=== PATIENT | male | born 1940 | race Caucasian/White ===

== ENCOUNTER 2023-12-11 03:08 | Inpatient (IN) | payer OTHER, SELFPAY ==
[2023-12-10 22:09] VITALS: BP 142/68
[2023-12-10 22:33] VITALS: BP 147/52
[2023-12-10 22:34] VITALS: BMI 27.7
[2023-12-10] MEDS: TYLENOL 650 MG PO (22:40)
[2023-12-10 22:46] VITALS: BP 157/68
[2023-12-10 22:59] LABS: % Basophils 0.2 % (0-2); % Eosinophils 0.1 % (0-6); % Immature Granulocytes 0.6 % (0-0.5); % Lymphocytes 4.5 % (20.5-51.1); % Monocytes 10.1 % (1.7-9.3); % Neutrophils 84.5 % (42.2-75.2); Absolute Immature Granulocytes 0.1 10^3/uL (0-0.05); Absolute Lymphocytes 0.6 10^3/uL (1.2-3.4); Absolute Monocytes 1.4 10^3/uL (0.1-0.6); Absolute Neutrophils 11.8 10^3/uL (1.4-6.5); Hematocrit 33.1 % (39.0-52.0); Hemoglobin 11.8 g/dL (13.0-18.0); Mean Corp Hgb Conc. 35.6 g/dL (33.0-37.0); Mean Corpuscular Hgb 33.2 pg (27.0-31.0); Mean Corpuscular Volume 93.2 fL (80.0-94.0); Mean Platelet Volume 9.1 fL (7.4-10.4); Nucleated Red Blood Cells % 0 % (-); Platelet Count 139 10^3/uL (130-400); Red Blood Cell Count 3.55 10^6/uL (4.70-6.10); Red Cell Dist. Width 12.9 % (11.5-14.5); White Blood Cell Count 13.9 10^3/uL (4.8-10.8)
[2023-12-10 23:00] VITALS: BP 141/62
[2023-12-10 23:07] LABS: Lactic Acid 1.1 mmol/L (0.7-2.0)
[2023-12-10 23:08] LABS: ALT (SGPT) 17 U/L (0-50); AST (SGOT) 22 U/L (17-59); Albumin 3.8 g/dl (3.5-5.0); Alkaline Phosphatase 70 U/L (38-126); Blood Urea Nitrogen 20 mg/dl (9-20); Calcium 8.9 mg/dl (8.4-10.2); Carbon Dioxide 20 mmol/L (22-30); Chloride 101 mmol/L (98-107); Estimated Creatinine Clearance 85 ml/min; Glucose 126 mg/dl (70-99); Potassium 3.9 mmol/L (3.5-5.1); Sodium 130 mmol/L (135-145); Total Bilirubin 1.1 mg/dl (0.2-1.3); Total Protein 6.1 g/dl (6.3-8.2); eGFR > 60.00
[2023-12-11] VITALS (12 sets, daily range): BP systolic 117–149; BP diastolic 55–101; PULSE 88; O2SAT 96; BMI 26.8
[2023-12-11 00:43] LABS: Urine Albumin 2+ (Neg - Trace); Urine Bilirubin Negative (Negative); Urine Character Slightly Cloudy (Clear); Urine Color Yellow; Urine Glucose Negative (Negative); Urine Ketone Negative (Negative); Urine Leukocyte 2+ (Negative); Urine Nitrite Negative (Negative); Urine Occult Blood Trace (Negative); Urine Specific Gravity 1.015 (<1.030); Urine Urobilinogen Negative (Neg - 1+)
--- NOTE | 2023-12-11 00:52 | ED.GENMED ---
History of Present Illness
General
Chief Complaint: Weakness
Source: patient
Time Seen by Provider: 12/11/23 00:19
History of Present Illness
History of Present Illness:
83-year-old male with past medical history of CAD, hypertension, hyperlipidemia, diabetes, UTI with previous urosepsis bacteremia presenting to the emergency department for evaluation with EMS for increased weakness and general lethargy over the
last 12 hours with reporting he started to feel unwell earlier in the day and then patient went into the bathroom and was unable to get him up off the toilet. Patient and are both unaware that patient had any fevers at home as
patient was to be febrile here upon arrival. reports patient was otherwise in his usual state of health. No known sick contacts, recent travel or recent antibiotics. Patient denies any recent URI-like illnesses. states patient has a
history of UTI bacteremia/sepsis and was admitted to this facility in March 2023 for this.
Past History
Past History
ED Past Medical History: CAD, HTN, Hypercholesterolemia, NIDDM (Diet controlled), Other (diverticulosis, PNA, Renal calculus, UTI, Right ankle fracture, ) and Other (kidney stone)
ED Past Surgical History: Cardiac (Stent), Tonsilectomy and Other (Deviated septum)
Social History
Tobacco: Non-smoker
Alcohol: None
Drug: None
Personal:
Living: with family
Employment: Employed
Family History
Family History: Hypertension
Review of Systems
Review of Systems
All Other Systems: ROS reviewed and negative except as documented in HPI and ROS
Phy Exam
Physical Exam
Physical Exam:
GENERAL: Sleepy but arousable, in no apparent distress
Head: Normocephalic atraumatic
EYE: conjunctiva clear
NECK: Supple, no significant adenopathy.
ENT: o/p clr, mmm.
CARDIAC: Regular rate and rhythm, harsh holosystolic murmur right second intercostal space
LUNGS: Clear breath sounds bilaterally, no acute respiratory distress, no wheezes/rales/rhonchi
Abdomen: Soft, nontender, nondistended
NEUROLOGICAL: Alert and oriented
SKIN: Warm and dry, skin intact.
MUSCULOSKELETAL: Trace nonpitting edema bilateral ankles
PSYCH: Normal and appropriate interaction.
Scores
Heart Failure Risk
Heart Failure Risk Score: Not Applicable
Heart Score for Chest Pain Patients
STEMI patient?: Not applicable
Withdrawal Assessment of Alcohol
Withdrawal Assessment Completed?: Not applicable
Course
Orders/Labs/Results
Orders:
Orders
12/10/23 22:37
Acetaminophen [Tylenol] 650 mg .ROUTE .STK-MED ONE
12/10/23 22:39
Acetaminophen [Tylenol] 650 mg PO NOW STA
12/10/23 22:48
Complete Blood Count/With Diff Urgent
Comprehensive Metabolic Panel Urgent
Lactate Level [Lactic Acid] Urgent
12/11/23 00:16
Urinalysis Reflex To Culture Urgent
Date Specimen was Collected: 12/11/23
Time Specimen was Collected: 00:15
Urine Microscopic Reflex Cult Urgent
Urine Culture Urgent
MIKKI Source: U
Specimen Description:
Date Specimen was Collected: 12/11/23
Time Specimen was Collected: 00:15
12/11/23 00:34
0.9% Sodium Chloride 1000 ml [Nss] 1,000 ml IV BOLUS
CR Chest - 2 Views Urgent
Comment:
Reason For Exam: fever
12/11/23 01:33
Cefepime HCl [Maxipime] 2,000 mg IV NOW STA
12/11/23 03:00
Flush (0.9% Sodium Chloride) [Flush (Nss)] See Dose Instructions IV PER PROTOCOL
12/11/23 04:45
Lactic Acid Q4H
Comment: CANCEL 2nd LACTIC ACID IF 1st LACTIC ACID IS LESS THAN 2
Abnormal Lab Results
12/10/23 12/11/23
22:48 00:16
WBC 13.9 H 10^3/uL
(4.8-10.8)
RBC 3.55 L 10^6/uL
(4.70-6.10)
Hgb 11.8 L g/dL
(13.0-18.0)
Hct 33.1 L %
(39.0-52.0)
MCH 33.2 H pg
(27.0-31.0)
Abs Immat Gran (auto) 0.1 H 10^3/uL
(0-0.05)
Absolute Neuts (auto) 11.8 H 10^3/uL
(1.4-6.5)
Absolute Lymphs (auto) 0.6 L 10^3/uL
(1.2-3.4)
Absolute Monos (auto) 1.4 H 10^3/uL
(0.1-0.6)
Immature Gran % 0.6 H %
(0-0.5)
Neutrophils % 84.5 H %
(42.2-75.2)
Lymphocytes % 4.5 L %
(20.5-51.1)
Monocytes % 10.1 H %
(1.7-9.3)
Sodium 130 L mmol/L
(135-145)
Carbon Dioxide 20 L mmol/L
(22-30)
Glucose 126 H mg/dl
(70-99)
Total Protein 6.1 L g/dl
(6.3-8.2)
Ur Occult Blood Reflex Trace A
(Negative)
Leukocyte Esterase Rfl 2+ A
(Negative)
Urine WBC (Reflex) >100 A /HPF
(0-5)
Urine Bacteria (Reflex) Many A
(Negative)
Urine Albumin (Reflex) 2+ A
(Neg - Trace)
12/10/23 22:48
12/10/23 22:48
Vital Signs
Initial and Last Documented VS:
Initial Vital Signs
Temp Pulse Resp BP Pulse Ox
99.9 F 91 18 142/68 96
12/10/23 22:09 12/10/23 22:09 12/10/23 22:09 12/10/23 22:09 12/10/23 22:09
Last Documented Vital Signs
Temp Pulse Resp BP Pulse Ox
100.3 F 76 20 133/64 96
12/10/23 23:49 12/11/23 02:00 12/11/23 02:00 12/11/23 01:16 12/11/23 02:00
MDM/Problems Addressed
Differential Diagnosis Includes:
COVID/other viral syndrome, UTI, pneumonia, bacteremia
MDM/Problems Addressed:
83-year-old male presenting to the emergency department for evaluation of generalized weakness that started about 12 hours ago. Patient found to have low-grade fever in the emergency department and treated with 650 mg Tylenol p.o. Labs including
lactic acid were ordered, urine and chest x-ray ordered. Patient currently hemodynamically stable. Given history and current presentation I do anticipate patient will need admission. Reassessment following workup
*Pulse Oximetry
Patient hypoxic: no
*Furniture Sales Associate Interpretation
Rate: normal
Rhythm: sinus
*Critical Care Note
Total Time (30-74mins, 75-104mins- exclusive of procedures): Not Applicable
Data Reviewed
Review of Other/Old Records Reveals: Labs and Records
Source: patient, records and spouse
Patient Management
Discussion with other providers: Hospitalist
Escalation/DeEscalation of care consider admission/obs:
Patient's urine with greater than 100 WBCs. Leukocytosis of 13,000. Lactic acid 1.1. Given age combined with generalized weakness and inability to ambulate as well as history of bacteremia and urosepsis will admit for IV antibiotics. Previous
culture report noted to be pansensitive. E. coli. IV Maxipime ordered. Hospitalist team was notified and accepts for continued evaluation and treatment.
ED Attending Note
-
Portions of this chart may have been created with voice recognition software.� Occasional wrong word or��sound alike� substitutions may have occurred due to the inherent limitations of voice recognition software.
Discharge Plan
Departure
Patient Disposition: Admit
Date of Disposition: 12/11/23
Time of Disposition: 01:36
Presentation/result/management discussed w/ accepting MD/DO: Hospitalist
Discharge Problem:
Acute UTI, Generalized weakness
Prescriptions:
No Action
nitroglycerin 0.4 MG tablet, sublingual
0.4 mg sublingual [id number] PRN (Reason: as needed)
Patient Comments:
pt states he has never used
multivitamin with folic acid [Tab-A-Tamara] 1 TABLET tablet
1 tab PO DAILY Qty: 0
atorvastatin 80 MG tablet
80 mg PO QPM
Flaxseed Oil 1,400 MG
1,400 mg PO BID
metoprolol succinate 50 MG tablet extended release 24 hr
50 mg PO DAILY
Metamucil Fiber Singles 1 PACKET powder in packet
1 packet PO QPM
lisinopril 20 MG tablet
40 mg PO DAILY
aspirin 81 MG tablet,delayed release (DR/EC)
81 mg PO BID
donepezil 5 MG tablet
5 mg PO HS
icosapent ethyl 1 GM capsule
2 gm PO BID
Cholecalciferol (Vitamin D3) [Vitamin D3] 50 MCG Capsule
50 mcg PO BID
methenamine hippurate 1 gram Tablet
1 g PO BID
sertraline 50 mg Tablet
50 mg PO DAILY
Myrbetriq 50 mg Tablet Extended Release 24 Hr
50 mg PO DAILY
cefazolin 10 gram Recon Soln
2 g IV Q8H Qty: 24 0RF
Referrals:
Jessenia Lo CRNP [Family Provider] -
Interventions
Interventions:
*Risk Screen - Suicide Last Done: 12/10/23 22:09
*General Assessment Last Done: 12/10/23 22:09
*Neglect/Abuse Screening Last Done: 12/10/23 22:09
*ED COVID-19 Vaccine History Last Done: 12/10/23 22:35
ED- Cardiac Assessment Last Done: 12/10/23 22:34
ED- Neurological Assessment Last Done: 12/10/23 22:34
ED- Pulmonary Assessment Last Done: 12/10/23 22:34
Discharge Date and Time
Print Language: MONTSERRATIAN
[2023-12-11] MEDS: NSS 1000 IV ×3 (01:20→20:57)
[2023-12-11 01:30] LABS: Urine Amorphous Seen; Urine Squamous Cell >30 /LPF (Few); Urine White Cell >100 /HPF (0-5)
[2023-12-11 01:31] LABS: Urine Bacteria Many (Negative); Urine Mucus Moderate
[2023-12-11] MEDS: MAXIPIME 2000 MG IV (02:06)
--- NOTE | 2023-12-11 02:48 | HPS.HSE ---
Family Physician
-
Family Physician: Jessenia Lo
Chief Complaint
-
weakness and AMS
History of Present Illness
83M HX Dementia, frequent UTI pw lethargy and weakness
Fever 101.3 at ER.
POS UA for URTI S 29M
Medical History
Past Medical History
Past Medical History: Reports Other
Additional Past Medical History:
ASCVD
Hypertension
Senile Dementia
BPH with LUTS
Frequent UTIs
Past Surgical History: Reports Other
Additional Past Surgical History:
TURP
PTCA with Stent
Carpal Tunnel Release
Social History
Tobacco: Non-smoker
Alcohol: None
Family History
Family History: Not pertinent
Allergies / Home Medications
Allergies reflects when Allergies were last updated in [facility].
Home Medications with original date entered in [facility]
Allergy/Medication List:
Allergies
Allergy/AdvReac Type Severity Reaction Status Date / Time
No Known Allergies Allergy Verified 03/11/23 21:08
Home Medications
multivitamin with folic acid 400 mcg tablet (Tab-A-Tamara) 1 tab PO DAILY Supplement ##0 12/14/11
nitroglycerin 0.4 mg sublingual tablet 0.4 mg sublingual [id number] PRN as needed 12/14/11
Flaxseed Oil 1,400 mg PO BID Supplement 02/08/14
atorvastatin 80 mg tablet 80 mg PO QPM High cholesterol 02/08/14
lisinopril 20 mg tablet 40 mg PO DAILY Blood pressure 12/24/18
metoprolol succinate 50 mg tablet,extended release 24 hr 50 mg PO DAILY Blood pressure 12/24/18
psyllium husk (aspartame) 3.4 gram oral powder packet (Metamucil Fiber Singles) 1 packet PO QPM Gastrointestinal issue 12/24/18
aspirin 81 mg tablet,delayed release 81 mg PO BID Blood clot prevention/tx 05/12/20
Cholecalciferol (Vitamin D3) [Vitamin D3] 50 mcg PO BID Supplement 08/21/21
donepezil 5 mg tablet 5 mg PO HS Alzheimers 08/21/21
icosapent ethyl 1 gram capsule 2 gm PO BID Supplement 08/21/21
methenamine hippurate 1 gram tablet 1 g PO BID 03/12/23
mirabegron 50 mg tablet,extended release 24 hr (Myrbetriq) 50 mg PO DAILY 03/12/23
sertraline 50 mg tablet 50 mg PO DAILY 03/12/23
Review of Systems
-
History Source: Patient
A 12 point ROS was completed and negative except as noted: Yes
Constitutional: Denies Fever or Chills
EENT: Denies Sore Throat
Respiratory: Denies Cough or Trouble Breathing
Cardiac: Denies Chest Pain or Palpitations
Abdomen/GI: Denies Abdominal Pain, Nausea, Vomiting or Diarrhea
: Reports Frequency and Urgency; Denies Dysuria, Flank Pain or Incontinence
Musculoskeletal: Denies Joint Pain or Edema
Neurological: Denies Dizzy or Headache
Psych: Denies Depression or Anxiety
Physical Exam
Vital Signs
Vital Signs
Temp Pulse Resp BP Pulse Ox
100.3 F 76 20 133/64 96
12/10/23 23:49 12/11/23 02:00 12/11/23 02:00 12/11/23 01:16 12/11/23 02:00
Physical Exam
General: Other (82y M in no acute distress.)
HEENT: Moist mucous membranes and PERRLA
Respiratory: Clear; No Wheezes, Rales or Rhonchi
Cardiac: S1/S2 and Regular Rhythm; No Murmur
GI: Soft, Non Tender, Non Distended and Normal Bowel Sounds
Genito-urinary: No costovertebral tender
Musculoskeletal: No Clubbing, No Cyanosis and No Edema
Neuro: Awake, Alert and Nonfocal/grossly intact
Psych: No Anxious or Depressed
Laboratory Results
-
12/10/23 22:48
12/10/23 22:48
Laboratory Results
Lactic Acid Cancelled 12/11/23 00:45
Total Bilirubin 1.1 mg/dl (0.2-1.3) 12/10/23 22:48
AST 22 U/L (17-59) 12/10/23 22:48
ALT 17 U/L (0-50) 12/10/23 22:48
Alkaline Phosphatase 70 U/L (38-126) 12/10/23 22:48
Data Reviewed
-
Lab Data: Labs Reviewed by me
Old Records: Reviewed
Impression/Plan
-
Reviewed VS: T max 101.3
Data
WCC 13.9
Hgb 11.8
Na 130
nl Cr
POS UA for UTI
CXR pending final report
Last hospitalist admission: 03/13/23 - 03/20/23
DISCHARGE DIAGNOSES:
1. Methicillin-sensitive Staph aureus bacteremia.
2. Escherichia coli urinary tract infection complicated with self- limited episode of hematuria.
3. COVID-19 positive.
ASSESSMENT & PLAN
Pending Rx reconciliation
Sepsis due to UTI
UTI
HX Recurrent UTIs
BPH
- UA consistent with possible infection.
- IV CFTX pending UCx
- IVF
- Hold Hiprex while on CFTX
Resolving lethargic TME with weakness due to UTI
Senile Dementia
- Treat UTI and observe MS
- Continue Aricept, sertraline, etc.
- PT / OT
CAD PTCA with Stent
- Stable. No current chest pain, etc.
- Continue current CV med regimen.
Benign Hypertension
- Stable.
- Continue current BP Meds
DVT Prophylaxis: SQ Heparin
Code: Full
IP TLM
[2023-12-11 06:36] LABS: Hematocrit 35.9 % (39.0-52.0); Hemoglobin 12.5 g/dL (13.0-18.0); Mean Corp Hgb Conc. 34.8 g/dL (33.0-37.0); Mean Corpuscular Hgb 33.7 pg (27.0-31.0); Mean Corpuscular Volume 96.8 fL (80.0-94.0); Mean Platelet Volume 9.3 fL (7.4-10.4); Platelet Count 131 10^3/uL (130-400); Red Blood Cell Count 3.71 10^6/uL (4.70-6.10); White Blood Cell Count 15.3 10^3/uL (4.8-10.8)
[2023-12-11] MEDS: HEPARIN 5000 UNITS SC ×2 (09:42→20:58)
[2023-12-11] MEDS: ROCEPHIN 1000 MG IV (09:43)
[2023-12-11] MEDS: STERILE WATER FOR INJECTION 10 ML IV (09:43)
--- NOTE | 2023-12-11 10:02 | W.PN.HOSP.TC ---
Addendum entered and electronically signed by Margarito Salgado DO 12/11/23 13:18:
Updated daughter Verito over the phone. All questions answered.
Original Note:
Today's Communication/Plan
-
Continue antibiotics
Recheck labs
PT/OT
Assessment / Plan
Assessment / Plan
Gen-awake, alert, NAD
HEENT-NC, AT, anicteric, clear oral mm
Neck-supple
CV-reg, no M, +S1/S2
Lungs-clear B/L
Abd-soft, NT, ND
Ext-no edema
Musculoskeletal-no cyanosis, clubbing
Skin-warm and dry
Neuro-grossly non-focal
Psych-calm, cooperative
Sepsis -due to UTI. Hemodynamically stable. Continue antibiotics. Await cultures.
Acute TME -due to sepsis. Unclear baseline but suspect his mental status has improved.
Hyponatremia -present on admission. Recheck labs.
Alzheimer's dementia
Hyperlipidemia
essential hypertension
CAD
BPH
Full code
Anticipated Discharge: 24 - 48 hours
Subjective/Interval History
-
Date of Service: December 11, 2023
Patient seen and examined. No complaints.
Objective Data
-
Labs:
Laboratory Results
12/10/23 12/11/23
22:48 06:10
WBC 13.9 H 15.3 H
Hgb 11.8 L 12.5 L
Hct 33.1 L 35.9 L
Plt Count 139 131
Sodium 130 L
Potassium 3.9
Chloride 101
Carbon Dioxide 20 L
BUN 20
Creatinine 0.7
Glucose 126 H
Calcium 8.9
Total Bilirubin 1.1
AST 22
ALT 17
Alkaline Phosphatase 70
Vital Signs:
Vital Signs
Temp Pulse Resp BP Pulse Ox
97 F 81 28 149/68 97
12/11/23 07:25 12/11/23 07:25 12/11/23 07:25 12/11/23 07:25 12/11/23 07:25
I&O
12/10/23 12/11/23 12/12/23
06:59 06:59 06:59
Output Total 1200 / 1200
Balance -1200 / -1200
Review of Systems
-
Unable to obtain full review of systems at this time due to: Dementia
History Source: Patient
All other systems: Reviewed and negative
[2023-12-11 11:08] LABS: Blood Urea Nitrogen 15 mg/dl (9-20); Calcium 8.8 mg/dl (8.4-10.2); Carbon Dioxide 24 mmol/L (22-30); Chloride 106 mmol/L (98-107); Estimated Creatinine Clearance 99 ml/min; Glucose 112 mg/dl (70-99); Sodium 136 mmol/L (135-145); eGFR > 60.00
[2023-12-11] MEDS: TYLENOL 650 MG PO (14:35)
--- NOTE | 2023-12-11 15:20 | CM ---
Patient seen bedside with , Verito initial assessment completed. Patient resides with at [facility] in a single story home, patient uses a cane for ambulation. PT recommending VN and / care, discussed with , agreeable to
referral to [facility]. reports patient is never left alone, if she goes out, she will bring patient with her. Patient PCP EXCELLENCE COACH Jessenia Lo, pharmacy [facility] in [facility]. Patient confirms prescription coverage, denies food, housing/utility, and
transportation insecurities. CM will send referral to [facility] in [facility], will continue to follow for all discharge planning needs.
Plan; home with [facility] pending acceptance.
[2023-12-11] MEDS: LIPITOR 80 MG PO (17:01)
[2023-12-11] MEDS: ARICEPT 5 MG PO (21:05)
[2023-12-12 03:22] VITALS: BP 140/74
[2023-12-12] MEDS: TYLENOL 650 MG PO (03:42)
[2023-12-12 07:30] VITALS: BP 134/73
[2023-12-12] MEDS: HEPARIN 5000 UNITS SC (09:09)
[2023-12-12] MEDS: ZOLOFT 50 MG PO (09:15)
[2023-12-12] MEDS: NORVASC 5 MG PO (09:16)
[2023-12-12] MEDS: ZESTRIL 40 MG PO (09:16)
[2023-12-12] MEDS: ROCEPHIN 1000 MG IV (09:16)
[2023-12-12] MEDS: STERILE WATER FOR INJECTION 10 ML IV (09:16)
--- NOTE | 2023-12-12 10:03 | W.PN.HOSP.TC ---
Addendum entered and electronically signed by Margarito Salgado DO 12/12/23 12:41:
Blood cultures negative. Urine culture shows contamination.
Can discharge on empiric oral antibiotics. Will pick Bactrim double strength.
Updated on the phone. Explained discharge instructions. Okay to discharge home today. Outpatient follow-up with PCP and urology.
mentioned that he has had 5 UTIs in the past 6 years. I informed her to make sure he follows up with urology.
also mentioned that he is enrolled in a sepsis clinical trial through [facility].
Original Note:
Today's Communication/Plan
-
Await cultures
Continue antibiotics
CBC
Assessment / Plan
Assessment / Plan
Gen-awake, alert, NAD
HEENT-NC, AT, anicteric, clear oral mm
Neck-supple
CV-reg, no M, +S1/S2
Lungs-clear B/L
Abd-soft, NT, ND
Ext-no edema
Musculoskeletal-no cyanosis, clubbing
Skin-warm and dry
Neuro-grossly non-focal
Psych-calm, cooperative
Sepsis -due to UTI. Hemodynamically stable. Continue antibiotics. Await cultures. Check CBC today.
Acute TME -due to sepsis. Unclear baseline but suspect his mental status has improved.
Hyponatremia -present on admission. Sodium improved.
Alzheimer's dementia
Hyperlipidemia
Essential hypertension - stable.
CAD
BPH
Full code
Did well with PT.
Anticipated Discharge: Within 24 hours
Subjective/Interval History
-
Date of Service: December 12, 2023
Patient seen and examined. Grumpy this morning. Wants to be left alone. No complaints.
Objective Data
-
Labs:
Laboratory Results
12/12/23
09:58
WBC Pending
Hgb Pending
Hct Pending
Plt Count Pending
Vital Signs:
Vital Signs
Temp Pulse Resp BP Pulse Ox
98.3 F 85 18 134/73 95
12/12/23 07:30 12/12/23 07:30 12/12/23 07:30 12/12/23 07:30 12/12/23 07:30
I&O
12/11/23 12/12/23 12/13/23
06:59 06:59 06:59
Intake Total 720 / 720
Output Total 1200 / 1200
Balance -1200 / -1200 720 / 720
Review of Systems
-
History Source: Patient
All other systems: Reviewed and negative
[2023-12-12 10:19] LABS: % Basophils 0.2 % (0-2); % Eosinophils 0.6 % (0-6); % Immature Granulocytes 0.3 % (0-0.5); % Lymphocytes 7.7 % (20.5-51.1); % Monocytes 7.4 % (1.7-9.3); % Neutrophils 83.8 % (42.2-75.2); Absolute Eosinophils 0.1 10^3/uL (0-0.7); Absolute Lymphocytes 0.7 10^3/uL (1.2-3.4); Absolute Monocytes 0.7 10^3/uL (0.1-0.6); Absolute Neutrophils 7.9 10^3/uL (1.4-6.5); Hematocrit 31.7 % (39.0-52.0); Hemoglobin 10.8 g/dL (13.0-18.0); Mean Corp Hgb Conc. 34.1 g/dL (33.0-37.0); Mean Corpuscular Hgb 33.2 pg (27.0-31.0); Mean Corpuscular Volume 97.5 fL (80.0-94.0); Mean Platelet Volume 8.8 fL (7.4-10.4); Nucleated Red Blood Cells % 0 % (-); Platelet Count 120 10^3/uL (130-400); Red Blood Cell Count 3.25 10^6/uL (4.70-6.10); Red Cell Dist. Width 13.2 % (11.5-14.5); White Blood Cell Count 9.5 10^3/uL (4.8-10.8)
[2023-12-12 11:11] VITALS: BP 131/63
--- NOTE | 2023-12-12 12:43 | W.DS.TRANS ---
DC Summary - Fur Glosser
-
Discharge Instructions:
Discharge Diagnosis/Procedures UTI
Diet Low Fat,Low Cholesterol,2 Gram Sodium
Activity As tolerated
Driving Restrictions No driving
Bathing Restrictions None
Instructions:
Stand-Alone Forms:
Changes to Home Medications: No
Discharge Medications:
DC Medications w/original date entered in [employer]
multivitamin with folic acid 400 mcg tablet (Tab-A-Tamara) 1 tab PO DAILY Supplement ##0 12/14/11
Flaxseed Oil 1,400 mg PO BID Supplement 02/08/14
atorvastatin 80 mg tablet 80 mg PO QPM High cholesterol 02/08/14
lisinopril 20 mg tablet 40 mg PO DAILY Blood pressure 12/24/18
metoprolol succinate 50 mg tablet,extended release 24 hr 25 mg PO DAILY Blood pressure 12/24/18
Cholecalciferol (Vitamin D3) [Vitamin D3] 50 mcg PO BID Supplement 08/21/21
donepezil 5 mg tablet 5 mg PO HS Alzheimers 08/21/21
icosapent ethyl 1 gram capsule 2 gm PO BID Supplement 08/21/21
methenamine hippurate 1 gram tablet 1 g PO BID Infection 03/12/23
mirabegron 50 mg tablet,extended release 24 hr (Myrbetriq) 50 mg PO DAILY Urinary Issue 03/12/23
sertraline 50 mg tablet 50 mg PO DAILY Depression 03/12/23
amlodipine 5 mg tablet 5 mg PO DAILY Blood Pressure 12/11/23
sulfamethoxazole 800 mg-trimethoprim 160 mg tablet (Bactrim DS) 1 tab PO BID #10 tabs 12/12/23
Home Medication Changes
Pending Results: No
[2023-12-12] MEDS: NSS IV (13:30)
--- NOTE | 2023-12-12 14:03 | CM ---
CM reviewed chart, patient for discharge today. Referral made to [facility]. SAMUEL will continue to follow for all discharge planning needs.
Plan; home with [facility].
--- NOTE | 2023-12-12 14:27 | PTCARENOTE ---
Rn flow seafood technology specialist- Patient cleared for discharge. Instructions reviewed with Verito over the phone.
== END 2023-12-12 14:40 | disposition home health service (06) | DRG 871 ==
LOC: 4 EAST ACU 03:08
PROVIDERS: Emergency Medicine; ADMITTING PHYSICIAN Internal Medicine; ATTENDING PHYSICIAN Hospitalist; EMERGENCY PHYSICIAN Student in an Organized Health Care Education/Training Program; FAMILY PHYSICIAN Nurse Practitioner Primary Care
DX: A41.9 Sepsis, unspecified organism (principal); G92.8 Other toxic encephalopathy; N39.0 Urinary tract infection, site not specified; E87.1 Hypo-osmolality and hyponatremia; G30.9 Alzheimer's disease, unspecified; F02.80 Dementia in other diseases classified elsewhere, unspecified severity, without behavioral disturbance, psychotic disturbance, mood disturbance, and anxiety; I10 Essential (primary) hypertension; E11.9 Type 2 diabetes mellitus without complications; N40.0 Benign prostatic hyperplasia without lower urinary tract symptoms; I25.10 Atherosclerotic heart disease of native coronary artery without angina pectoris
CPT/HCPCS: 71046; 80048; 80053; 81003; 81015; 83605; 85025; 85027; 87040; 87086; 97162; 99285

== ENCOUNTER → 2024-01-03 14:00 | Outpatient (REF) | payer OTHER, SELFPAY | LOC: PAVMRI 14:00 | PROVIDERS: ATTENDING PHYSICIAN Psychiatry & Neurology Neurology; FAMILY PHYSICIAN Nurse Practitioner Primary Care | DX: R41.89 Other symptoms and signs involving cognitive functions and awareness (principal) | CPT/HCPCS: 70553; A9575 ==

== ENCOUNTER → 2024-04-15 11:08 | Outpatient (REF) | payer OTHER, SELFPAY | LOC: HWRCS 11:08 | PROVIDERS: ATTENDING PHYSICIAN Internal Medicine Cardiovascular Disease; FAMILY PHYSICIAN Internal Medicine Geriatric Medicine | DX: Z95.5 Presence of coronary angioplasty implant and graft (principal); I35.0 Nonrheumatic aortic (valve) stenosis; I25.10 Atherosclerotic heart disease of native coronary artery without angina pectoris | CPT/HCPCS: 93306 ==

== ENCOUNTER 2024-07-10 20:29 | Emergency (ER) | payer OTHER, SELFPAY ==
[2024-07-10 20:36] VITALS: BP 140/64
[2024-07-10] MEDS: TYLENOL 650 MG PO (20:57)
[2024-07-10 20:59] LABS: % Basophils 0.3 % (0-2); % Eosinophils 0.4 % (0-6); % Immature Granulocytes 0.4 % (0-0.5); % Lymphocytes 3.8 % (20.5-51.1); % Monocytes 13.3 % (1.7-9.3); % Neutrophils 81.8 % (42.2-75.2); Absolute Lymphocytes 0.3 10^3/uL (1.2-3.4); Hematocrit 35.9 % (39.0-52.0); Hemoglobin 12.1 g/dL (13.0-18.0); Mean Corp Hgb Conc. 33.7 g/dL (33.0-37.0); Mean Corpuscular Hgb 32.7 pg (27.0-31.0); Mean Platelet Volume 9.2 fL (7.4-10.4); Nucleated Red Blood Cells % 0 % (-); Platelet Count 168 10^3/uL (130-400); Red Cell Dist. Width 13.2 % (11.5-14.5); White Blood Cell Count 7.3 10^3/uL (4.8-10.8)
[2024-07-10 21:00] VITALS: BP 141/53
[2024-07-10] MEDS: NSS 1000 IV (21:02)
--- NOTE | 2024-07-10 21:03 | ED.GENMED ---
History of Present Illness
<Chelsi Ball PA-C - Last Filed: 07/11/24 13:08>
General
Chief Complaint: Weakness
Source: patient and ambulance crew
Exam Limitations: clinical condition and dementia
Time Seen by Provider: 07/10/24 20:36
Nursing documentation reviewed up to this point in time: agreed with
History of Present Illness
History of Present Illness:
pt is a 84 y/o M
h/o alzheimers
from home
via ems for weakness, fever, cough
pt says he coughed all night
he feels genearlly weak
he has h/o urosepsis, was admitted in december for uti and fever and acute TME related to the UTI
he also was hyponatremic
pt normally can get himself around but was more weak today
family is not here
Past History
<Chelsi Ball PA-C - Last Filed: 07/11/24 13:08>
Past History
ED Past Medical History: CAD, HTN, Hypercholesterolemia, NIDDM (Diet controlled), Other (diverticulosis, PNA, Renal calculus, UTI, Right ankle fracture, ) and Other (kidney stone)
ED Past Surgical History: Cardiac (Stent), Tonsilectomy and Other (Deviated septum)
Social History
Tobacco: Non-smoker
Alcohol: None
Drug: None
Personal:
Living: with family
Employment: Employed
Family History
Family History: Hypertension
Phy Exam
<SERGEI No Last Filed: 07/11/24 13:08>
Physical Exam
Physical Exam:
GENERAL: Alert , in no apparent distress
EYE: pupils equal and reactive
NECK: Supple
ENT: o/p clr, mmm.
CARDIAC: Regular rate and rhythm .+mod systolic blowing mrumur
LUNGS: end exp wheezing occ, clears with cough; spastic sounding cough; no crackles no tachypnea
ABDOMEN: Soft, without focal tenderness, no r/g, no cvat, normal bowel sounds
NEUROLOGICAL: Alert and oriented, no focal neuro deficits
SKIN: Warm and dry, skin intact.
MUSCULOSKELETAL: No edema, well perfused. neg dipti's sign
can lift legs well
PSYCH: Normal and appropriate interaction.
Course
<Chelsi Ball PA-C - Last Filed: 07/11/24 13:08>
Orders/Labs/Results
Orders:
Orders
07/10/24 20:34
Electrocardiogram (*1) Urgent
Reason for Study: Fatigue / Weakness
07/10/24 20:35
EKG- Treatment ONCE
07/10/24 20:40
COVID-19 Antigen Urgent
Source: Nasal Swab
Complete Blood Count/With Diff Urgent
Comprehensive Metabolic Panel Urgent
Influenza A+B Rapid Molecular Urgent
MIKKI Source: Nasal Swab
Specimen Description:
07/10/24 20:49
0.9% Sodium Chloride 1000 ml [Nss] 1,000 ml IV BOLUS
Acetaminophen [Tylenol] 650 mg PO NOW STA
07/10/24 20:50
CR Chest - 2 Views Urgent
Comment:
Reason For Exam: fever, cough
07/10/24 20:59
Acetaminophen [Tylenol] 325 mg .ROUTE .STK-MED ONE
07/10/24 21:02
Lactic Acid Urgent
07/10/24 21:08
Straight cath- Treatment ONCE
07/10/24 21:34
Respiratory Syncytial Virus Urgent
MIKKI Source: Nasal Swab
Specimen Description:
Date Specimen was Collected: 07/10/24
Time Specimen was Collected: 21:34
07/10/24 22:17
Urinalysis Reflex To Culture Urgent
Date Specimen was Collected: 07/10/24
Time Specimen was Collected: 20:35
Urine Microscopic Reflex Cult Urgent
Urine Culture Urgent
MIKKI Source: U
Specimen Description:
Date Specimen was Collected: 07/10/24
Time Specimen was Collected: 20:35
07/10/24 23:59
Add On - Microbiology Urgent
Tests Added?: urine culture
Abnormal Lab Results
07/10/24 07/10/24
20:40 22:17
RBC 3.70 L 10^6/uL
(4.70-6.10)
Hgb 12.1 L g/dL
(13.0-18.0)
Hct 35.9 L %
(39.0-52.0)
MCV 97.0 H fL
(80.0-94.0)
MCH 32.7 H pg
(27.0-31.0)
Absolute Lymphs (auto) 0.3 L 10^3/uL
(1.2-3.4)
Absolute Monos (auto) 1.0 H 10^3/uL
(0.1-0.6)
Neutrophils % 81.8 H %
(42.2-75.2)
Lymphocytes % 3.8 L %
(20.5-51.1)
Monocytes % 13.3 H %
(1.7-9.3)
Sodium 134 L mmol/L
(135-145)
Glucose 110 H mg/dl
(70-99)
Total Protein 6.1 L g/dl
(6.3-8.2)
Ur Occult Blood Reflex 1+ A
(Negative)
Urine RBC 3-6 A /HPF
(0-2)
Urine Albumin (Reflex) 2+ A
(Neg - Trace)
07/10/24 20:40
07/10/24 20:40
Vital Signs
Initial and Last Documented VS:
Initial Vital Signs
Temp
37.7 C
07/10/24 20:32
Last Documented Vital Signs
Temp Pulse Resp BP Pulse Ox
37.6 C 94 19 133/61 94
07/10/24 23:46 07/10/24 22:30 07/10/24 22:30 07/10/24 22:00 07/10/24 22:30
<VANDANA Gonzalez - Last Filed: 07/11/24 00:00>
Orders/Labs/Results
Orders:
Orders
07/10/24 20:34
Electrocardiogram (*1) Urgent
Reason for Study: Fatigue / Weakness
07/10/24 20:35
EKG- Treatment ONCE
07/10/24 20:40
COVID-19 Antigen Urgent
Source: Nasal Swab
Complete Blood Count/With Diff Urgent
Comprehensive Metabolic Panel Urgent
Influenza A+B Rapid Molecular Urgent
MIKKI Source: Nasal Swab
Specimen Description:
07/10/24 20:49
0.9% Sodium Chloride 1000 ml [Nss] 1,000 ml IV BOLUS
Acetaminophen [Tylenol] 650 mg PO NOW STA
07/10/24 20:50
CR Chest - 2 Views Urgent
Comment:
Reason For Exam: fever, cough
07/10/24 20:59
Acetaminophen [Tylenol] 325 mg .ROUTE .STK-MED ONE
07/10/24 21:02
Lactic Acid Urgent
07/10/24 21:08
Straight cath- Treatment ONCE
07/10/24 21:34
Respiratory Syncytial Virus Urgent
MIKKI Source: Nasal Swab
Specimen Description:
Date Specimen was Collected: 07/10/24
Time Specimen was Collected: 21:34
07/10/24 22:17
Urinalysis Reflex To Culture Urgent
Date Specimen was Collected: 07/10/24
Time Specimen was Collected: 20:35
Urine Microscopic Reflex Cult Urgent
Urine Culture Urgent
MIKKI Source: U
Specimen Description:
Date Specimen was Collected: 07/10/24
Time Specimen was Collected: 20:35
07/10/24 23:59
Add On - Microbiology Urgent
Tests Added?: urine culture
Abnormal Lab Results
07/10/24 07/10/24
20:40 22:17
RBC 3.70 L 10^6/uL
(4.70-6.10)
Hgb 12.1 L g/dL
(13.0-18.0)
Hct 35.9 L %
(39.0-52.0)
MCV 97.0 H fL
(80.0-94.0)
MCH 32.7 H pg
(27.0-31.0)
Absolute Lymphs (auto) 0.3 L 10^3/uL
(1.2-3.4)
Absolute Monos (auto) 1.0 H 10^3/uL
(0.1-0.6)
Neutrophils % 81.8 H %
(42.2-75.2)
Lymphocytes % 3.8 L %
(20.5-51.1)
Monocytes % 13.3 H %
(1.7-9.3)
Sodium 134 L mmol/L
(135-145)
Glucose 110 H mg/dl
(70-99)
Total Protein 6.1 L g/dl
(6.3-8.2)
Ur Occult Blood Reflex 1+ A
(Negative)
Urine RBC 3-6 A /HPF
(0-2)
Urine Albumin (Reflex) 2+ A
(Neg - Trace)
07/10/24 20:40
07/10/24 20:40
Vital Signs
Initial and Last Documented VS:
Initial Vital Signs
Temp
37.7 C
07/10/24 20:32
Last Documented Vital Signs
Temp Pulse Resp BP Pulse Ox
37.6 C 94 19 133/61 94
07/10/24 23:46 07/10/24 22:30 07/10/24 22:30 07/10/24 22:00 07/10/24 22:30
<Chelsi Ball PA-C - Last Filed: 07/11/24 13:08>
MDM/Problems Addressed
Differential Diagnosis Includes:
urosepsis, URI, flu, covid, pneumonia, rsv
MDM/Problems Addressed:
84 y/o M
dementia
from home
h/o utis
weak today, uirinated x 2 on himself, not typical
can usually make it to the bathroom
he ate normally
pt c/o cough
temp normal at home, got tylenol at 6pm and then febrile here 102 rectally
coughing semi-freqnetly
no sob
no hypoxia
emanuel w/u with labs, lactic, cxr, ua
signed out to [facility]
<VANDANA Gonzalez - Last Filed: 07/11/24 00:00>
MDM/Problems Addressed
MDM/Problems Addressed:
84 y/o M
dementia
from home
h/o utis
weak today, uirinated x 2 on himself, not typical
can usually make it to the bathroom
he ate normally
pt c/o cough
temp normal at home, got tylenol at 6pm and then febrile here 102 rectally
coughing semi-freqnetly
no sob
no hypoxia
emanuel w/u with labs, lactic, cxr, ua
signed out to [facility]
2300: Received signout. Patient resting in no acute distress has no complaints at this time. Family reports patient is back to normal. Patient's urinalysis is negative for UTI (0�2 white blood cells and 3�6 RBCs ) sent for culture .his chest
x-ray is negative. His white count is normal at 7.3 he is negative for COVID flu and RSV mild cough however not hypoxic denies any shortness of breath.
Patient ambulated here with cane very steady on his feet at baseline. Repeat temp 99.6. Likely viral syndrome. Patient with no urinary incontinence here in the ER was able to urinate in urinal. No complaints of trauma back pain
Patient feels well enough to go home family comfortable with plan of care will discharge with close outpatient follow-up family doctor.
<VANDANA Gonzalez - Last Filed: 07/11/24 00:00>
*Critical Care Note
Total Time (30-74mins, 75-104mins- exclusive of procedures): Not Applicable
ED Attending Note
<Chelsi Ball PA-C - Last Filed: 07/11/24 13:08>
-
Portions of this chart may have been created with voice recognition software.� Occasional wrong word or��sound alike� substitutions may have occurred due to the inherent limitations of voice recognition software.
Discharge Plan
Departure
Patient Disposition: Home (Routine Discharge)
Date of Disposition: 07/10/24
Time of Disposition: 23:56
Patient with high blood pressure during this ER visit?: Yes
Covid-19: Not Applicable
Discharge Problem:
Fever, Weakness
Instructions: Generalized Weakness (DC), Fever, Adult ED, BLOOD PRESSURE
Prescriptions:
No Action
multivitamin with folic acid [Tab-A-Tamara] 1 TABLET tablet
1 tab PO DAILY Qty: 0
atorvastatin 80 MG tablet
80 mg PO QPM
Flaxseed Oil 1,400 MG
1,400 mg PO BID
metoprolol succinate 50 MG tablet extended release 24 hr
25 mg PO DAILY
lisinopril 20 MG tablet
40 mg PO DAILY
donepezil 5 MG tablet
5 mg PO HS
icosapent ethyl 1 GM capsule
2 gm PO BID
Cholecalciferol (Vitamin D3) [Vitamin D3] 50 MCG Capsule
50 mcg PO BID
methenamine hippurate 1 gram Tablet
1 g PO BID
sertraline 50 mg Tablet
50 mg PO DAILY
mirabegron [Myrbetriq] 50 mg Tablet Extended Release 24 Hr
50 mg PO DAILY
amlodipine 5 mg Tablet
5 mg PO DAILY
sulfamethoxazole-trimethoprim [Bactrim DS] 800-160 mg tablet
1 tab PO BID Qty: 10 0RF
Referrals:
Jessenia Lo CRNP [Family Provider] -
Activity Restrictions/Additional Instructions:
As discussed patient's urinalysis was found to be negative for infection and testing for flu and COVID and RSV were also negative.
Urine was tested and culture was sent . if there is infection found in culture you will receive a phone call. Be sure to get plenty of rest follow-up with family doctor in the next several days for reevaluation return if any worsening of symptoms.
Interventions
Interventions:
*Risk Screen - Suicide Last Done: 07/10/24 20:35
*General Assessment Last Done: 07/10/24 20:52
*Neglect/Abuse Screening Last Done: 07/10/24 20:35
*ED COVID-19 Vaccine History Last Done: 07/10/24 20:35
*Nursing Disposition Last Done: 07/11/24 00:08
ED- Cardiac Assessment Last Done: 07/10/24 20:50
ED- Neurological Assessment Last Done: 07/10/24 20:50
ED- Pulmonary Assessment Last Done: 07/10/24 20:50
Discharge Date and Time
Discharge Date/Time: 07/11/24 00:09
Print Language: CITIZEN [place]
[2024-07-10 21:04] LABS: COVID-19 Antigen Negative (Negative)
[2024-07-10 21:11] LABS: ALT (SGPT) 21 U/L (0-50); AST (SGOT) 20 U/L (17-59); Alkaline Phosphatase 89 U/L (38-126); Blood Urea Nitrogen 17 mg/dl (9-20); Calcium 9.4 mg/dl (8.4-10.2); Carbon Dioxide 22 mmol/L (22-30); Chloride 102 mmol/L (98-107); Glucose 110 mg/dl (70-99); Sodium 134 mmol/L (135-145); Total Bilirubin 0.8 mg/dl (0.2-1.3); Total Protein 6.1 g/dl (6.3-8.2); eGFR > 60.00
[2024-07-10 22:00] VITALS: BP 133/61
[2024-07-10 22:39] LABS: Urine Albumin 2+ (Neg - Trace); Urine Bilirubin Negative (Negative); Urine Character Clear (Clear); Urine Color Yellow; Urine Glucose Negative (Negative); Urine Ketone Negative (Negative); Urine Leukocyte Negative (Negative); Urine Nitrite Negative (Negative); Urine Occult Blood 1+ (Negative); Urine Urobilinogen Negative (Neg - 1+)
[2024-07-10 22:58] LABS: Urine Squamous Cell 0-2 /LPF (Few); Urine White Cell 0-2 /HPF (0-5)
== END 2024-07-11 00:09 | disposition home or self-care (01) ==
LOC: EMR 20:29
PROVIDERS: Physician Assistant; EMERGENCY PHYSICIAN Emergency Medicine; FAMILY PHYSICIAN Nurse Practitioner Primary Care
DX: R50.9 Fever, unspecified (principal); R53.1 Weakness; F02.80 Dementia in other diseases classified elsewhere, unspecified severity, without behavioral disturbance, psychotic disturbance, mood disturbance, and anxiety; G30.9 Alzheimer's disease, unspecified; I25.10 Atherosclerotic heart disease of native coronary artery without angina pectoris; E78.00 Pure hypercholesterolemia, unspecified; E11.9 Type 2 diabetes mellitus without complications; I10 Essential (primary) hypertension; Z82.49 Family history of ischemic heart disease and other diseases of the circulatory system; Z87.440 Personal history of urinary (tract) infections; Z87.442 Personal history of urinary calculi; Z95.5 Presence of coronary angioplasty implant and graft
CPT/HCPCS: 99283; 96360; 71046; 80053; 81003; 81015; 83605; 85025; 87086; 87502; 87807; 87811; 93005

== ENCOUNTER → 2024-11-11 11:07 | Outpatient (REF) | payer OTHER, SELFPAY | LOC: DHSLP 11:07 | PROVIDERS: ATTENDING PHYSICIAN Nurse Practitioner Primary Care | DX: G47.19 Other hypersomnia (principal); R06.83 Snoring | CPT/HCPCS: 95800 ==

== ENCOUNTER 2025-01-20 17:01 | Observation (INO) | payer OTHER, SELFPAY ==
[2025-01-20] VITALS (15 sets, daily range): BP systolic 127–166; BP diastolic 61–86; PULSE 80; O2SAT 95
--- NOTE | 2025-01-20 06:09 | ED.GENMED ---
History of Present Illness
<Renetta Sahni MD, Resident - Last Filed: 01/20/25 15:37>
General
Chief Complaint: Weakness
Source: patient and family
Exam Limitations: clinical condition and dementia
Time Seen by Provider: 01/20/25 05:57
Nursing documentation reviewed up to this point in time: agreed with
History of Present Illness
History of Present Illness:
84 year old male with a past medical history of CAD, HTN, HLD, BPH, Dementia, and Hyponatremia comes to the ED due to recent increased weakness, cough and altered mental status. Patient was last here in the hospital for similar symptoms back in
July 2024 where he was found to have a viral illness and went home after fluid resuscitation. He does have a history of urosepsis as well for which he was admitted to the hospital in 12/2023.
Talking with the family reveals that patient was found this past Sunday on the kitchen floor. They did not hear a thud or a crash but found him laying there. They think it may be due to him wanting to pear picker some chocolate chips and didn't notice
any bruising in his body. Patient's cough started yesterday for which his gave him some Mucinex which did not seem to help with the symptoms. Later on that night, he developed worsening lethargy and altered mental status which prompted them to
come to the hospital. As per the family, the patient is much altered from his baseline and his symptoms are much worse than his symptoms when he was here last in July.
Past History
<Renetta Sahni MD, Resident - Last Filed: 01/20/25 15:37>
Past History
ED Past Medical History: CAD, HTN, Hypercholesterolemia, NIDDM (Diet controlled), Other (diverticulosis, PNA, Renal calculus, UTI, Right ankle fracture, ), Other (Alzheimer's Dementia) and Other (kidney stone)
ED Past Surgical History: Cardiac (Stent), Tonsilectomy and Other (Deviated septum)
Social History
Tobacco: Non-smoker
Alcohol: None
Drug: None
Personal:
Living: with family
Employment: Employed
Family History
Family History: Hypertension
Review of Systems
<Renetta Sahni MD, Resident - Last Filed: 01/20/25 15:37>
Review of Systems
Allergies reviewed?: Yes
Unable to obtain full review of systems at this time due to: due to acuity
Other source history: family
Constitutional: Reports fatigue
EENT: Reports no symptoms
Respiratory: Reports cough and trouble breathing
Cardiac: Reports no symptoms
ABD/GI: Reports no symptoms
: Reports no symptoms
Musculoskeletal: Reports no symptoms
Skin: Reports no symptoms
Neurological: Reports no symptoms
Endocrine: Reports no symptoms
Hematologic/Lymphatic: Reports no symptoms
Psychiatric: Reports no symptoms
Phy Exam
<Renetta Sahni MD, Resident - Last Filed: 01/20/25 15:37>
General Physical Exam
General Presentation: moderate distress
General age: appears stated age
General Skin: warm and dry
General Habitus: elderly
General Mental: anxious and confused
Cardiovascular Exam
Cardiovascular Exam: regular rate/rhythm and no murmur
Pulmonary Exam
Breath Sounds: Crackles: generalized
Gastrointestinal Exam
Gastrointestinal Exam: non tender, soft and non distended
Musculoskeletal Exam
Musculoskeletal Exam: edema (1+ Edema Bilateral LE)
Skin Exam
Skin Exam: normal color and warm/dry
Sepsis
<Renetta Sahni MD, Resident - Last Filed: 01/20/25 15:37>
Sepsis Screening
Sepsis Assessment: Sepsis Ruled Out
Sepsis Screen
Sepsis Screen: Sepsis Ruled Out
Date: 01/20/25
Time: 15:37
Course
<Renetta Sahni MD, Resident - Last Filed: 01/20/25 15:37>
Orders/Labs/Results
Orders:
Orders
01/20/25 06:04
EKG [Electrocardiogram (*1)] Urgent
Reason for Study: Fatigue / Weakness
EKG- Treatment ONCE
Chest [CR Chest - 2 Views ] Urgent
Comment:
Reason For Exam: Cough
01/20/25 06:06
COVID-19 Antigen Urgent
Source: Nasal Swab
Complete Blood Count/With Diff Urgent
Comprehensive Metabolic Panel Urgent
Influenza A+B Rapid Molecular Urgent
MIKKI Source: Nasal Swab
Specimen Description:
01/20/25 06:07
0.9% Sodium Chloride 500 ml [Nss] 500 ml IV BOLUS
01/20/25 06:12
Acetaminophen [Tylenol] 1,000 mg PO NOW STA
01/20/25 06:19
Lactic Acid Q4H
Comment: CANCEL 2nd LACTIC ACID IF 1st LACTIC ACID IS LESS THAN 2
Blood Culture Q30M
MIKKI Source: Blood/Venous
Specimen Description:
Blood Culture Q30M
MIKKI Source: Blood/Venous
Specimen Description:
01/20/25 06:36
Urinalysis Reflex To Culture Urgent
Date Specimen was Collected: 01/20/25
Time Specimen was Collected: 06:09
Urine Microscopic Reflex Cult Urgent
01/20/25 06:57
CT Head W/o Iv Contrast Urgent
Comment:
Reason For Exam: altered mental status (possible fall on Sunday)
01/20/25 07:33
Case Management Consult ONCE
Case Management Consult: Other
Comment: Patient on palliative care as per family (signed up last week). Would want information regarding
possible help/facilities for patient
01/20/25 08:36
Physical Therapy Consult [Pt Eval And Treat] Urgent
Activity Level: Out of Bed-Early Mobility
01/20/25 12:25
Acetaminophen [Tylenol] 1,000 mg PO NOW STA
Cholecalciferol (Vitamin D3) [VITAMIN D3 (cholecalciferol)] 50 mcg PO NOW STA
Donepezil [Aricept] 5 mg PO NOW STA
01/20/25 12:26
Lisinopril [Zestril] 40 mg PO NOW STA
Memantine HCl [Namenda] 10 mg PO NOW STA
Methenamine Hippurate [Hiprex] 1 gram PO NOW STA
Sertraline HCl [Zoloft] 100 mg PO NOW STA
Abnormal Lab Results
01/20/25 01/20/25
06:06 06:36
RBC 3.55 L 10^6/uL
(4.70-6.10)
Hgb 11.3 L g/dL
(13.0-18.0)
Hct 34.2 L %
(39.0-52.0)
MCV 96.3 H fL
(80.0-94.0)
MCH 31.8 H pg
(27.0-31.0)
Absolute Neuts (auto) 7.0 H 10^3/uL
(1.4-6.5)
Absolute Lymphs (auto) 0.3 L 10^3/uL
(1.2-3.4)
Absolute Monos (auto) 0.7 H 10^3/uL
(0.1-0.6)
Neutrophils % 87.3 H %
(42.2-75.2)
Lymphocytes % 3.2 L %
(20.5-51.1)
Glucose 115 H mg/dl
(70-99)
Ur Occult Blood Reflex 2+ A
(Negative)
Urine RBC 3-6 A /HPF
(0-2)
Urine Bacteria (Reflex) Few A
(Negative)
Urine Albumin (Reflex) 3+ A
(Neg - Trace)
01/20/25 06:06
01/20/25 06:06
Vital Signs
Initial and Last Documented VS:
Initial Vital Signs
Temp Pulse Resp BP Pulse Ox
100.0 F 87 22 154/75 97
01/20/25 05:57 01/20/25 05:57 01/20/25 05:57 01/20/25 05:57 01/20/25 05:57
Last Documented Vital Signs
Temp Pulse Resp BP Pulse Ox
100.0 F 76 17 149/62 96
01/20/25 05:57 01/20/25 13:55 01/20/25 11:15 01/20/25 13:39 01/20/25 11:15
<Yobany Hoyos, DO - Last Filed: 01/20/25 06:40>
Orders/Labs/Results
Orders:
Orders
01/20/25 06:04
EKG [Electrocardiogram (*1)] Urgent
Reason for Study: Fatigue / Weakness
EKG- Treatment ONCE
Chest [CR Chest - 2 Views ] Urgent
Comment:
Reason For Exam: Cough
01/20/25 06:06
COVID-19 Antigen Urgent
Source: Nasal Swab
Complete Blood Count/With Diff Urgent
Comprehensive Metabolic Panel Urgent
Influenza A+B Rapid Molecular Urgent
MIKKI Source: Nasal Swab
Specimen Description:
01/20/25 06:07
0.9% Sodium Chloride 500 ml [Nss] 500 ml IV BOLUS
01/20/25 06:12
Acetaminophen [Tylenol] 1,000 mg PO NOW STA
01/20/25 06:19
Lactic Acid Q4H
Comment: CANCEL 2nd LACTIC ACID IF 1st LACTIC ACID IS LESS THAN 2
Blood Culture Q30M
MIKKI Source: Blood/Venous
Specimen Description:
Blood Culture Q30M
MIKKI Source: Blood/Venous
Specimen Description:
01/20/25 06:36
Urinalysis Reflex To Culture Urgent
Date Specimen was Collected: 01/20/25
Time Specimen was Collected: 06:09
Urine Microscopic Reflex Cult Urgent
01/20/25 06:57
CT Head W/o Iv Contrast Urgent
Comment:
Reason For Exam: altered mental status (possible fall on Sunday)
01/20/25 07:33
Case Management Consult ONCE
Case Management Consult: Other
Comment: Patient on palliative care as per family (signed up last week). Would want information regarding
possible help/facilities for patient
01/20/25 08:36
Physical Therapy Consult [Pt Eval And Treat] Urgent
Activity Level: Out of Bed-Early Mobility
01/20/25 12:25
Acetaminophen [Tylenol] 1,000 mg PO NOW STA
Cholecalciferol (Vitamin D3) [VITAMIN D3 (cholecalciferol)] 50 mcg PO NOW STA
Donepezil [Aricept] 5 mg PO NOW STA
01/20/25 12:26
Lisinopril [Zestril] 40 mg PO NOW STA
Memantine HCl [Namenda] 10 mg PO NOW STA
Methenamine Hippurate [Hiprex] 1 gram PO NOW STA
Sertraline HCl [Zoloft] 100 mg PO NOW STA
Abnormal Lab Results
01/20/25 01/20/25
06:06 06:36
RBC 3.55 L 10^6/uL
(4.70-6.10)
Hgb 11.3 L g/dL
(13.0-18.0)
Hct 34.2 L %
(39.0-52.0)
MCV 96.3 H fL
(80.0-94.0)
MCH 31.8 H pg
(27.0-31.0)
Absolute Neuts (auto) 7.0 H 10^3/uL
(1.4-6.5)
Absolute Lymphs (auto) 0.3 L 10^3/uL
(1.2-3.4)
Absolute Monos (auto) 0.7 H 10^3/uL
(0.1-0.6)
Neutrophils % 87.3 H %
(42.2-75.2)
Lymphocytes % 3.2 L %
(20.5-51.1)
Glucose 115 H mg/dl
(70-99)
Ur Occult Blood Reflex 2+ A
(Negative)
Urine RBC 3-6 A /HPF
(0-2)
Urine Bacteria (Reflex) Few A
(Negative)
Urine Albumin (Reflex) 3+ A
(Neg - Trace)
01/20/25 06:06
01/20/25 06:06
Vital Signs
Initial and Last Documented VS:
Initial Vital Signs
Temp Pulse Resp BP Pulse Ox
100.0 F 87 22 154/75 97
01/20/25 05:57 01/20/25 05:57 01/20/25 05:57 01/20/25 05:57 01/20/25 05:57
Last Documented Vital Signs
Temp Pulse Resp BP Pulse Ox
100.0 F 76 17 149/62 96
01/20/25 05:57 01/20/25 13:55 01/20/25 11:15 01/20/25 13:39 01/20/25 11:15
<Renetta Sahni MD, Resident - Last Filed: 01/20/25 15:37>
MDM/Problems Addressed
Differential Diagnosis Includes:
Sepsis due to Respiratory/Urological infection, Exacerbation of Heart Disease, Worsening Dementia
MDM/Problems Addressed:
84 year old male with a past medical history of CAD, HTN, HLD, BPH, Dementia, and Hyponatremia comes to the ED due to recent increased weakness, cough and altered mental status that has been going on for a week.
Will try to get more information once the is here in the hospital.
EKG shows sinus rhythm with premature atrial complexes which is similar to EKG from Jul 2024
Meanwhile will get basic labs including CMP, CBC, Blood Cxs, Lactic Acid, Urinalysis, Chest X-Ray, and give a bolus of IVF.
Will test for COVID+Flu
COVID+Flu negative
Talking with the family revealed information about finding patient on the ground on Sunday, requiring help from 3 people to lift him up. Will check Head CT for any head bleeds that may be contributing to the Altered Mental Status.
Discussed with that patient was put on Palliative care last week after discussion with his Nurse Practitioner. says she has been having trouble taking care of him now and would want help. Will consult case management to help provide family
more information regarding care for patient
Case Management recommends PT Eval to determine need for SNF placement
Head CT without any acute intracranial abnormalities.
PT recommends SNF placement, case management in contact with potential places for placement
While awaiting SNF placement, will give patient's home meds here
Awaiting CXR final read, may start abx based on findings
CXR negative for any acute cardiopulmonary process
Case management unable to find facility for patient today will require admission for overnight observation as he gets placed in a facility
Chronic conditions affecting care: HTN and Neurological disorder (Dementia)
<Renetta Sahni MD, Resident - Last Filed: 01/20/25 15:37>
*Pulse Oximetry
SaO2: 97
Oxygen Mode of Delivery: Room air
Patient hypoxic: no
*Critical Care Note
Total Time (30-74mins, 75-104mins- exclusive of procedures): Not Applicable
ED Attending Note
<Renetta Sahni MD, Resident - Last Filed: 01/20/25 15:37>
-
Portions of this chart may have been created with voice recognition software.� Occasional wrong word or��sound alike� substitutions may have occurred due to the inherent limitations of voice recognition software.
<Yobany Hoyos, DO - Last Filed: 01/20/25 06:40>
ED Attending Note
Patient seen and examined by attending physician: Yes
I performed the substantive portion of visit, reviewed & personally made and approve the management plan that is documented in note by myself or YAZAN.: Yes
ED Attending Note:
I evaluated the patient at bedside. He has evidence of cognitive deficits. White count normal however the temperature is borderline elevated 37.8 Celsius.
Discharge Plan
Departure
Patient Disposition: Admit
Date of Disposition: 01/20/25
Time of Disposition: 15:36
Admit to: Med/Surg
Presentation/result/management discussed w/ accepting MD/DO: Hospitalist
Patient with high blood pressure during this ER visit?: Yes
Consults for patient: Case Management
Condition: Fair
Covid-19: Negative COVID-19
Discharge Problem:
Change in mental status, Generalized weakness
Prescriptions:
No Action
atorvastatin 80 MG tablet
80 mg PO QPM
donepezil 5 MG tablet
5 mg PO DAILY
icosapent ethyl 1 GM capsule
2 gm PO BID
mirabegron [Myrbetriq] 50 mg Tablet Extended Release 24 Hr
50 mg PO QPM
sertraline 100 mg tablet
100 mg PO DAILY
methenamine hippurate 1 gram tablet
1 g PO BID
metoprolol succinate 25 mg tablet extended release 24 hr
25 mg PO QPM
lisinopril 40 mg tablet
40 mg PO DAILY
memantine 10 mg tablet
10 mg PO BID
cholecalciferol (vitamin D3) [Vitamin D3] 50 mcg (2,000 unit) Tablet
50 mcg PO BID
Referrals:
Jessenia Lo CRNP [Family Provider, Internal Medicine] - Call in 1-3 days for appt
Referral Note: Follow up with your PCP as discussed
Activity Restrictions/Additional Instructions:
As discussed, please follow up with your PCP for further management of weakness and recent change in mental status.
If you develop worsening symptoms such as fever, chills, worsening shortness of breath/trouble breathing, or chest pain, please return to the ED for further management.
Interventions
Interventions:
*Risk Screen - Suicide Last Done: 01/20/25 05:57
*General Assessment Last Done: 01/20/25 05:57
*Neglect/Abuse Screening Last Done: 01/20/25 05:57
*ED- Fall Risk Assessment Last Done: 01/20/25 05:57
*ED COVID-19 Vaccine History Last Done: 01/20/25 05:57
ED- Cardiac Assessment Last Done: 01/20/25 07:13
ED- Neurological Assessment Last Done: 01/20/25 07:13
ED- Pulmonary Assessment Last Done: 01/20/25 07:13
Discharge Date and Time
Print Language: EQUATORIAL GUINEAN
[2025-01-20 06:16] LABS: Hematocrit 34.2 % (39.0-52.0); Hemoglobin 11.3 g/dL (13.0-18.0); Mean Corp Hgb Conc. 33.0 g/dL (33.0-37.0); Mean Corpuscular Volume 96.3 fL (80.0-94.0); Nucleated Red Blood Cells % 0 % (-); Platelet Count 146 10^3/uL (130-400); Red Cell Dist. Width 14.2 % (11.5-14.5)
[2025-01-20] MEDS: NSS 500 IV (06:23)
[2025-01-20 06:36] LABS: COVID-19 Antigen Negative (Negative)
[2025-01-20] MEDS: TYLENOL 1000 MG PO ×2 (06:40→13:37)
[2025-01-20 06:41] LABS: ALT (SGPT) 13 U/L (0-50); AST (SGOT) 22 U/L (17-59); Albumin 3.9 g/dl (3.5-5.0); Alkaline Phosphatase 91 U/L (38-126); Blood Urea Nitrogen 12 mg/dl (9-20); Calcium 8.9 mg/dl (8.4-10.2); Carbon Dioxide 25 mmol/L (22-30); Chloride 107 mmol/L (98-107); Estimated Creatinine Clearance 86 ml/min; Glucose 115 mg/dl (70-99); Potassium 3.9 mmol/L (3.5-5.1); Sodium 139 mmol/L (135-145); Total Protein 6.4 g/dl (6.3-8.2); eGFR > 60.00
[2025-01-20 06:52] LABS: Urine Character Clear (Clear)
[2025-01-20 07:07] LABS: Urine White Cell 0-2 /HPF (0-5)
--- NOTE | 2025-01-20 09:26 | CM ---
Addendum entered by Cyndi Asencio 01/20/25 16:40:
[facility] cannot accept him today. [facility] will reach out to patients to discuss possible transition to Memory Care Unit. Pt's is agreeable and looking forward to speaking to [facility].
Addendum entered by Cyndi Asencio 01/20/25 16:04:
Received a call back from Trinidad at [facility], they are not willing to accept at this time, concerned pt may need placement after completing rehab and they do not have a memory care unit.
Addendum entered by Cyndi Asencio 01/20/25 15:40:
I called Yaneli at [facility] to discuss referral, they do not have an open bed in their dementia unit. I also called [facility] and left a voicemail for Bhumi Hale ZEESHAN asking for a call back to discuss referral. I met with pt's and
daughter, informed them [facility] does not have a bed in their dementia unit and I have not heard back from [facility]. Pt's agreeable to send referral to [facility]. Does not want [facility] or [facility]. Discussed with
Kaitlyn, he is reaching out to hospitalist to discuss obs admission.
Addendum entered by Cyndi Asencio 01/20/25 10:29:
PT recommended SNF, referrals sent to [facility] and [facility] per family request.
Original Note:
CM received consult, met with pt's bedside in ED. Pt was sleeping. Lives with his on basement level of granddaughter's home. Granddaughter has a 2 year old and is 9 months .
Pt needs assistance with ADLs and personal care, independent in ambulation with cane. Climbs steps.
Per , pt had been declining, dementia worsening. Pt started on Palliative Care last week, had a fall on Sunday which required assist of 3 to get him up. Per his , she has looked at [facility] in [place], considering memory care placement.
Discussed obtaining PT consult and pt's is agreeable.
Hx Zoltan VN
PCP: Jessenia Lo
Pharmacy: [facility]
Awaiting PT consult, will continue discharge planning discussion with pt's
[2025-01-20] MEDS: HIPREX 1 GRAM PO (13:36)
[2025-01-20] MEDS: ARICEPT 5 MG PO (13:37)
[2025-01-20] MEDS: ZESTRIL 40 MG PO (13:39)
[2025-01-20] MEDS: VITAMIN D3 (cholecalciferol) 50 MCG PO (13:43)
[2025-01-20] MEDS: NAMENDA 10 MG PO (13:43)
[2025-01-20] MEDS: ZOLOFT 100 MG PO (13:44)
--- NOTE | 2025-01-20 15:50 | W.PN.UPDATE ---
Addendum entered and electronically signed by Jonnie Martinez MD 01/20/25 16:45:
Correction:
DVT Px: LMWH
<del>Full</del> <del>code</del> DNR per
OBS MS
Addendum entered and electronically signed by Jonnie Martinez MD 01/20/25 16:43:
Typo correction:
Hemodynamically stable.
Suspect recent acute viral infection complicated with deconditioning elderly
Acute ambulatory dysfunction due to dcondtiining and complicated with care give spuse stress : NEG HCT
Cough- NEG CXR, afebrile, nl WCC
Unremarkable w/u for acute infective process
No clinical evidence of TME <del>Acute</del> <del>TME</del> <del>-due</del> <del>to</del> <del>sepsis.</del> <del>Unclear</del> <del>baseline</del> <del>but</del> <del>suspect</del> <del>his</del> <del>mental</del> <del>status</del>
<del>has</del> <del>improved.</del>
Severe Alzheimer's dementia with progression : un able to care for as of now
Hyperlipidemia
Essential hypertension - stable.
CAD: stable
BPH
- supportive care and IVF
- PT evaluated him in ED and also recommend SNF.
- Case management were unable to get him placed today- for possible placement tomorrow.
Original Note:
Update Note
Progress Note Update
I could not get any information from the patient has Dementia
Information gathered by chart review and speaking with the ER staff and spouse
This note serves as an addendum to the H&P by PGY3
HPI�
84oM HX severe Alzheimer's dementia came to the ED earlier this morning due to cough and generalized weakness that began around a week ago.
- CXR was negative
- labwork unremarkabl
- slight increase in temperature but his symptoms seem to resolve with just IVF therapy.
- was taking care of him at home but as his dementia has gotten worse, they are now looking to place him in SNF.
- PT evaluated him in ED and also recommend SNF.
- Case management were unable to get him placed today so would have to be admitted for possible placement tomorrow.
Relevant VS
Vital Signs
Temp Pulse Resp BP Pulse Ox
100.0 F 76 17 149/62 96
01/20/25 05:57 01/20/25 13:55 01/20/25 11:15 01/20/25 13:39 01/20/25 11:15
PE
en-awake, alert, NAD
HEENT-NC, AT, anicteric, clear oral mm
Neck-supple
CV-reg, no M, +S1/S2
Lungs-clear B/L
Abd-soft, NT, ND
Ext-no edema
Musculoskeletal-no cyanosis, clubbing
Skin-warm and dry
Neuro-grossly non-focal
Psych-calm, cooperative
Relevant Data
07/10/24 01/20/25 01/20/25
20:40 06:06 06:36
WBC 8.0
Hgb 12.1 L 11.3 L
Creatinine 0.7
eGFR > 60.00
Urine WBC (Reflex) 0-2
SARS-CoV-2 Antigen Negative
EKG
SINUS RHYTHM WITH PREMATURE ATRIAL COMPLEXES
OTHERWISE NORMAL ECG
WHEN COMPARED WITH ECG OF 10-Jul-2024 20:37,
MINIMAL CRITERIA FOR INFERIOR INFARCT ARE NO LONGER PRESENT
CXR:
- No radiographically demonstrable acute cardiopulmonary process.
CT Head W/o Iv Contrast
- No acute intracranial abnormality noted.
- Mild chronic white matter senescent changes. Moderate to advanced atrophy.
Last hospitalist admission: ATE OF ADMISSION: 12/11/2023 - DATE OF DISCHARGE: 12/12/2023
DISCHARGE DIAGNOSES:
1. Sepsis due to urinary tract infection.
2. Acute toxic-metabolic encephalopathy.
3. Hyponatremia.
4. Alzheimer's dementia.
ASSESSMENT & PLAN
Hemodynamically stable.
Suspect recent acute viral infection complicated with deconditioning elderly
Acute ambulatory dysfunction due to dcondtiining and complicated with care give spuse stress : NEG HCT
Cough- NEG CXR, afebrile, nl WCC
Unremarkable w/u for acute infective process
Acute TME -due to sepsis. Unclear baseline but suspect his mental status has improved.
Severe Alzheimer's dementia with progression : un able to care for as of now
Hyperlipidemia
Essential hypertension - stable.
CAD: stable
BPH
- supportive care and IVF
- PT evaluated him in ED and also recommend SNF.
- Case management were unable to get him placed today- for possible placement tomorrow.
DVT Px: LMWH
Full code
OBS MS
--- NOTE | 2025-01-20 16:13 | HPS.HSE ---
Family Physician
-
Family Physician: Jessenia Lo
Chief Complaint
-
Cough
History of Present Illness
This is an 84-year-old male with past medical history of CAD, hypertension, Alzheimer's dementia who presents to the ED due to change in mental status and ongoing cough. History was obtained at bedside from . Per patient's , the patient
has been experiencing productive cough with clear sputum that started yesterday. In addition he has had reported fevers, although temperature was not checked at home. He had no hemoptysis. In addition to the symptoms, per , 2 days ago the
patient was found laying on the floor in the kitchen, although did not fall. Family got him up from the floor to the bed, he denied pain, and did not notice any bruising on his body. This morning, fever and cough continued. In addition,
states he has become more confused compared to his typical baseline.
Upon presentation to the ED, temperature 100.0 �F, pulse 87, blood pressure 154/75, respiratory 22, O2 sat 97% on room air.� Laboratory showed an unremarkable CBC, unremarkable CMP, lactic acid 1.1, urinalysis negative, flu and COVID-negative.� EKG
unremarkable.� CT scan with no acute intracranial abnormality noted.� Mild chronic white matter senescent changes.� Moderate to advanced atrophy.� Chest x-ray with no radiographically demonstrable acute cardiopulmonary process.
He was evaluated in the ED by physical therapy who recommended SNF placement.� Due to inability for possible placement today, we are asked to admit patient for obs, with plans for possible placement tomorrow.� Blood cultures were ordered in the ED
which are currently pending.
Medical History
Past Medical History
Past Medical History: Reports Other (ASCVD, hypertension, BPH, Cervical stenosis, Hypercholesterolemia, diverticulosis, renal calculi, recurrent UTI)
Past Surgical History: Reports Other (TURP, carpal tunnel release)
Social History
Tobacco: Non-smoker
Alcohol: None
Drug: None
Personal:
Living: With Family
Employment: Retired
Family History
Family History: Not pertinent
Allergies / Home Medications
Allergies reflects when Allergies were last updated in [employer].
Home Medications with original date entered in [employer]
Allergy/Medication List:
Allergies
Allergy/AdvReac Type Severity Reaction Status Date / Time
No Known Allergies Allergy Verified 07/10/24 20:38
Home Medications
atorvastatin 80 mg tablet 80 mg PO QPM High cholesterol 02/08/14
donepezil 5 mg tablet 5 mg PO DAILY Neurological Condition 08/21/21
icosapent ethyl 1 gram capsule 2 gm PO BID Supplement 08/21/21
mirabegron 50 mg tablet,extended release 24 hr (Myrbetriq) 50 mg PO QPM Urinary Issue 03/12/23
cholecalciferol (vitamin D3) 50 mcg (2,000 unit) tablet (Vitamin D3) 50 mcg PO BID 01/20/25
lisinopril 40 mg tablet 40 mg PO DAILY 01/20/25
memantine 10 mg tablet 10 mg PO BID 01/20/25
methenamine hippurate 1 gram tablet 1 g PO BID 01/20/25
metoprolol succinate 25 mg tablet,extended release 24 hr 25 mg PO QPM 01/20/25
sertraline 100 mg tablet 100 mg PO DAILY 01/20/25
Review of Systems
-
A 12 point ROS was completed and negative except as noted: Yes
Constitutional: Reports Other (All review of systems obtained and negative except as documented)
Physical Exam
Vital Signs
Vital Signs
Temp Pulse Resp BP Pulse Ox
100.0 F 74 22 138/68 92
01/20/25 05:57 01/20/25 16:00 01/20/25 16:00 01/20/25 16:00 01/20/25 16:00
Physical Exam
General: Well Developed and No Apparent Distress
HEENT: NormoCephalic
Respiratory: Clear
Cardiac: S1/S2 and Regular Rhythm
GI: Soft, Non Tender, Non Distended and Normal Bowel Sounds
Musculoskeletal: Other (1+ edema bilaterally)
Skin: Warm
Neuro: Awake and Alert
Psych: Calm
Laboratory Results
-
01/20/25 06:06
01/20/25 06:06
Laboratory Results
Lactic Acid Cancelled 01/20/25 10:15
Total Bilirubin 0.6 mg/dl (0.2-1.3) 01/20/25 06:06
AST 22 U/L (17-59) 01/20/25 06:06
ALT 13 U/L (0-50) 01/20/25 06:06
Alkaline Phosphatase 91 U/L (38-126) 01/20/25 06:06
Impression/Plan
-
Assessment/plan
#Acute viral illness with ongoing cough
-CXR negative
-Flu, covid negative,
-IV fluids, supportive care
-Monitor temp curve, WBC.
#Ambulatory dysfunction secondary to Deconditioning vs worsening dementia
#Alzheimer's dementia
-CT head without acute findings
-Urinalysis negative
-PT/OT
-Continue home meds
-Was evaluated in the ED, SNF recommended.
-manager hospital unable to get him placed today
-Awaiting placement, possibly tomorrow.
#CAD s/p stent
-denies acute chest pain
#Essential hypertension
-Continue home medications
#Hyperlipidemia
-Continue Statin
CODE STATUS DNR
DVT prophylaxis subcu heparin
--- NOTE | 2025-01-20 18:45 | PTCARENOTE ---
Received pt from ER via stretcher, accompanied by ER staff. Transferred to bed with assist x3. Pt awake and alert; oriented to self only; irritable; occ uncooperative. States he has 'No idea what I am doing here'. Re-oriented as needed. Pt ALMODOVAR
slowly. VSS. On room air- pulse ox 93%, pt with occ loose, non-productive cough; denies SOB. Abd obese, soft, incont BM and urine upon arrival to unit. Afebrile; skin warm and dry; small scabbed areas noted on lower legs; small bruise Rt hip.
Oriented to 4 east, currently resting quietly. Will continue to monitor.
[2025-01-20] MEDS: NAMENDA PO (20:00)
[2025-01-20] MEDS: NSS 1000 IV (20:00)
[2025-01-20] MEDS: HIPREX PO (20:00)
[2025-01-20] MEDS: VITAMIN D3 (cholecalciferol) PO (20:00)
[2025-01-20] MEDS: HEPARIN 5000 UNITS SC (20:15)
[2025-01-20] MEDS: ZOFRAN 4 MG IV (21:05)
--- NOTE | 2025-01-20 21:27 | PTCARENOTE ---
Upon assessment of patient - (dinner at bedside which was untouched). Pt had vomited all over himself. He is moaning out but denies any pain . Pt with dementia and is oriented to self only. All PO meds held due to vomiting . PRISON GUARD SUPERVISOR notified and
zofran ordered for nausea. NS hung per order. Pt not making any attempts to get oob but bed alarm on for safety.
--- NOTE | 2025-01-20 22:55 | PTCARENOTE ---
Pt received from via bed at 2245. Pt sleepy, A&Ox1, and VSS. Pr receptive to room. Pr bed in lowest position and call dang within reach. Pt educated on importance of call dang usage, pt does not relay understanding. Pt bed alarm plugged in. Will
continue with current plan of care.
--- NOTE | 2025-01-21 02:45 | DOWNTIME ---
There was a [employer] Client Mud Grinder Downtime on 01/21/2025 from 0100 to 01/21/2025 at 0235. Downtime documentation of patient's care, including medication administrations, has been reconciled in the electronic record per guidelines. Refer to the
patient's paper chart under the miscellaneous tab to see printed paper medication records and downtime forms.
[2025-01-21 07:00] VITALS: BP 159/62
[2025-01-21 08:17] LABS: Hematocrit 31.6 % (39.0-52.0); Hemoglobin 10.3 g/dL (13.0-18.0); Mean Corp Hgb Conc. 32.6 g/dL (33.0-37.0); Mean Corpuscular Volume 97.2 fL (80.0-94.0); Platelet Count 121 10^3/uL (130-400); Red Cell Dist. Width 14.4 % (11.5-14.5)
--- NOTE | 2025-01-21 08:17 | VNURNOTE ---
Chart reviewed. PIGMENT SUPPLIER [facility] rec'ed referral for homecare from PCP. Patient was not signed onto services yet, as he came to . Appears that plan now is for pt to go to SNF. [facility] remains available.
--- NOTE | 2025-01-21 08:37 | W.PN.HOSP.TC ---
Today's Communication/Plan
-
Awaiting placement to SNF
Assessment / Plan
Assessment / Plan
84-year-old male with past medical history of CAD, hypertension, Alzheimer's dementia who presents to the ED due to change in mental status and ongoing cough.
#Acute viral illness with ongoing cough
-CXR negative
-Flu, covid negative,
-IV fluids, supportive care
- Remains afebrile with normal white count
#Ambulatory dysfunction secondary to Deconditioning vs worsening dementia
#Alzheimer's dementia
-CT head without acute findings
-Urinalysis negative
-PT recommended skilled rehab upon discharge
-Continue home meds
-Started on Palliative Care last week per
-manager medicaid unable to get him placed yesterday
-Awaiting placement, possibly today
#CAD s/p stent
-denies acute chest pain
#Essential hypertension
-Continue home medications
#Hyperlipidemia
-Continue Statin
CODE STATUS DNR
DVT prophylaxis subcu heparin
Anticipated Discharge: Today
Subjective/Interval History
-
Date of Service: January 21, 2025
Seen and examined at bedside. Offers no new complaints. AFVSS.
Objective Data
-
Labs:
Laboratory Results
01/21/25
08:00
WBC 7.5
Hgb 10.3 L
Hct 31.6 L
Plt Count 121 L
Sodium Pending
Potassium Pending
Chloride Pending
Carbon Dioxide Pending
BUN Pending
Creatinine Pending
Glucose Pending
Calcium Pending
Vital Signs:
Vital Signs
Temp Pulse Resp BP Pulse Ox
98.0 F 98 20 144/71 91
01/20/25 23:00 01/20/25 23:00 01/20/25 23:00 01/20/25 23:00 01/20/25 23:00
I&O
01/20/25 01/21/25 01/22/25
06:59 06:59 06:59
Intake Total 480 / 480
Balance 480 / 480
Review of Systems
-
All other systems: Reviewed and negative (Except as documented)
Physical Exam
-
General: Well Developed and No Apparent Distress
Respiratory: Clear to Auscultation
Cardiac: Regular Rhythm and S1/S2
GI: Soft, Nontender and Nondistended
Musculoskeletal: Edema, Right Lower Extrem and Edema, Left Lower Extrem
Skin: Warm and Dry
Neuro: Awake and Alert; Negative Oriented
Psych: Calm and Confused
Data Reviewed
-
Diagnostic Radiology: Report Reviewed by me
CT Scan: Report Reviewed by me
Labs: Labs Reviewed by me, Discussed with Physician and Discussed with Patient
[2025-01-21] MEDS: VITAMIN D3 (cholecalciferol) 50 MCG PO (08:43)
[2025-01-21] MEDS: HIPREX 1 GRAM PO (08:43)
[2025-01-21] MEDS: ZESTRIL 40 MG PO (08:43)
[2025-01-21] MEDS: ZOLOFT 100 MG PO (08:43)
[2025-01-21] MEDS: NAMENDA 10 MG PO (08:43)
[2025-01-21] MEDS: HEPARIN 5000 UNITS SC (08:43)
[2025-01-21] MEDS: ARICEPT 5 MG PO (08:43)
[2025-01-21 08:48] LABS: Blood Urea Nitrogen 15 mg/dl (9-20); Calcium 8.4 mg/dl (8.4-10.2); Carbon Dioxide 23 mmol/L (22-30); Chloride 110 mmol/L (98-107); Estimated Creatinine Clearance 86 ml/min; Glucose 101 mg/dl (70-99); Magnesium 1.6 mg/dl (1.6-2.3); Potassium 3.7 mmol/L (3.5-5.1); Sodium 140 mmol/L (135-145); eGFR > 60.00
--- NOTE | 2025-01-21 09:52 | CM ---
Addendum entered by Lia Carlson 01/21/25 10:19:
Skilled placement at [facility], Auth for 6 days [id number], for 6 days, 01/21/25 to 01/26/25, ambulance Auth for Acute care ambulance [id number]
[facility]
Report [phone]

Original Note:
manager emergency department reviewed patient's chart and met with patient and patient has been approved for skilled placement at [facility], COVID test has been completed and faxed, vocational case manager to obtain Auth for skilled placement, patient's spouse and
granddaughter are aware of plan.
Plan; Skilled placement at [facility].
[2025-01-21 11:30] VITALS: BP 143/73
--- NOTE | 2025-01-21 12:05 | W.DCSUMMARY ---
Documented by User: Faisal Miller MD, Resident 01/21/25 12:13
Discharge Summary
Discharge Data
Date of Admission: 01/20/25
Date of Discharge: 01/21/25
-
Pending Results: No
Hospital Course
Discharging Physician : Faisal Miller MD ; Jose Gardner MD
Disposition : SNF([facility])
Primary care physician : Jessenia Lo
Principal Discharge diagnosis : Ambulatory dysfunction secondary to Deconditioning vs worsening dementia, Alzheimer's dementia
Chronic Discharge diagnosis : CAD s/p stent, hypertension, Hyperlipidemia,
Hospital Course : This is an 84-year-old male with past medical history of CAD, hypertension, Alzheimer's dementia who presents to the ED due to change in mental status and ongoing cough. History was obtained at bedside from . Per patient's
, the patient has been experiencing productive cough with clear sputum that started yesterday. In addition he has had reported fevers, although temperature was not checked at home. He had no hemoptysis. In addition to the symptoms, per ,
2 days ago the patient was found laying on the floor in the kitchen, although did not fall. Family got him up from the floor to the bed, he denied pain, and did not notice any bruising on his body. In addition, states he has become more
confused compared to his typical baseline.
Upon presentation to the ED, temperature 100.0 �F, pulse 87, blood pressure 154/75, respiratory 22, O2 sat 97% on room air.� Laboratory showed an unremarkable CBC, unremarkable CMP, lactic acid 1.1, urinalysis negative, flu and COVID-negative.� EKG
unremarkable.� CT scan with no acute intracranial abnormality noted.� Mild chronic white matter senescent changes.� Moderate to advanced atrophy.� Chest x-ray with no radiographically demonstrable acute cardiopulmonary process.
He was evaluated in the ED by physical therapy who recommended SNF placement.� Due to inability for possible placement same day, he was kept overnight in obs and dc next day. He remained medically stable.
Important imaging findings : CXR: No radiographically demonstrable acute cardiopulmonary process.
Head CT: 01/20/2025
No acute intracranial abnormality noted.
Mild chronic white matter senescent changes. Moderate to advanced atrophy
Discharge Plan
-
Patient Disposition: Shelter/SNF
Discharge Diagnosis/Procedures: Ambulatory dysfunction secondary to Deconditioning vs worsening dementia
Alzheimer's dementia
Condition: Fair
Diet: Low Cholesterol
Activity: As tolerated
Driving Restrictions: As prior to admission
Bathing Restrictions: None
Blood Work: CBC and BMP in 1 week
Referrals:
Jessenia Lo CRNP [Family Provider, Internal Medicine] - in less than 1 week
Additional Discharge Medication Instructions: Please continue all home medications as listed below.
Prescriptions:
Continued
atorvastatin 80 MG tablet
80 mg PO QPM
donepezil 5 MG tablet
5 mg PO DAILY
icosapent ethyl 1 GM capsule
2 gm PO BID
mirabegron [Myrbetriq] 50 mg Tablet Extended Release 24 Hr
50 mg PO QPM
sertraline 100 mg tablet
100 mg PO DAILY
methenamine hippurate 1 gram tablet
1 g PO BID
metoprolol succinate 25 mg tablet extended release 24 hr
25 mg PO QPM
lisinopril 40 mg tablet
40 mg PO DAILY
memantine 10 mg tablet
10 mg PO BID
cholecalciferol (vitamin D3) [Vitamin D3] 50 mcg (2,000 unit) Tablet
50 mcg PO BID
Discharge Orders:
Discharge Patient (As Directed); Ordered 01/21/25
Ordered By: Faisal Miller
Discharge Date and Time
Discharge Date/Time: 01/21/25 12:27
Print Language: GEORGIAN

Documented by User: Jose Gardner DO 01/21/25 14:20
Discharge Summary
Discharge Data
Date of Admission: 01/20/25
Date of Discharge: 01/21/25
Discharge Plan
-
Patient Disposition: Shelter/SNF
Discharge Diagnosis/Procedures: Ambulatory dysfunction secondary to Deconditioning vs worsening dementia
Alzheimer's dementia
Condition: Fair
Diet: Low Cholesterol
Activity: As tolerated
Driving Restrictions: As prior to admission
Bathing Restrictions: None
Blood Work: CBC and BMP in 1 week
Referrals:
Jessenia Lo CRNP [Family Provider, Internal Medicine] - in less than 1 week
Additional Discharge Medication Instructions: Please continue all home medications as listed below.
Prescriptions:
Continued
atorvastatin 80 MG tablet
80 mg PO QPM
donepezil 5 MG tablet
5 mg PO DAILY
icosapent ethyl 1 GM capsule
2 gm PO BID
mirabegron [Myrbetriq] 50 mg Tablet Extended Release 24 Hr
50 mg PO QPM
sertraline 100 mg tablet
100 mg PO DAILY
methenamine hippurate 1 gram tablet
1 g PO BID
metoprolol succinate 25 mg tablet extended release 24 hr
25 mg PO QPM
lisinopril 40 mg tablet
40 mg PO DAILY
memantine 10 mg tablet
10 mg PO BID
cholecalciferol (vitamin D3) [Vitamin D3] 50 mcg (2,000 unit) Tablet
50 mcg PO BID
Discharge Orders:
Discharge Patient (As Directed); Ordered 01/21/25
Ordered By: Faisal Miller
Discharge Date and Time
Discharge Date/Time: 01/21/25 12:27
Print Language: GEORGIAN
== END 2025-01-21 12:27 ==
LOC: 4 WEST ACU 17:01
PROVIDERS: Student in an Organized Health Care Education/Training Program; ADMITTING PHYSICIAN Internal Medicine; ATTENDING PHYSICIAN Internal Medicine; EMERGENCY PHYSICIAN Emergency Medicine; FAMILY PHYSICIAN Nurse Practitioner Primary Care
DX: R26.89 Other abnormalities of gait and mobility (principal); G30.9 Alzheimer's disease, unspecified; F02.80 Dementia in other diseases classified elsewhere, unspecified severity, without behavioral disturbance, psychotic disturbance, mood disturbance, and anxiety; R53.1 Weakness; Z66 Do not resuscitate; Z79.899 Other long term (current) drug therapy; Z11.52 Encounter for screening for COVID-19; I10 Essential (primary) hypertension; I25.10 Atherosclerotic heart disease of native coronary artery without angina pectoris; N40.0 Benign prostatic hyperplasia without lower urinary tract symptoms; E78.00 Pure hypercholesterolemia, unspecified; Z51.5 Encounter for palliative care; E87.1 Hypo-osmolality and hyponatremia
CPT/HCPCS: 70450; 71046; 80048; 80053; 81003; 81015; 83605; 83735; 85025; 85027; 87040; 87502; 87811; 93005; 99285; G0378

== ENCOUNTER 2025-03-31 03:59 | Emergency (ER) | payer OTHER, SELFPAY ==
[2025-03-31 04:02] VITALS: BP 168/68
[2025-03-31 04:05] VITALS: BP 168/68
--- NOTE | 2025-03-31 04:16 | ED.GENMED ---
History of Present Illness
General
Chief Complaint: Fall
Time Seen by Provider: 03/31/25 04:01
History of Present Illness
History of Present Illness:
84-year-old male with history of dementia, hypertension, diabetes presenting after a fall. Patient reports that he was sleeping in his bed and rolled out of bed and landed on the floor. Patient arrives from assisted living facility, found on the
floor. Patient denies any head injury, however notes that he does not recall the fall. He currently reports right shoulder pain. He denies any prodromal chest pain or difficulty breathing. He reports that he had difficulty getting up from the
floor. Denies any pain to the lower extremities. Denies recent fever or illness. Denies additional acute medical complaints
Past History
Past History
ED Past Medical History: CAD, HTN, Hypercholesterolemia, NIDDM (Diet controlled), Other (diverticulosis, PNA, Renal calculus, UTI, Right ankle fracture, ), Other (Alzheimer's Dementia) and Other (kidney stone)
ED Past Surgical History: Cardiac (Stent), Tonsilectomy and Other (Deviated septum)
Social History
Tobacco: Non-smoker
Alcohol: None
Drug: None
Personal:
Living: with family
Employment: Employed
Family History
Family History: Hypertension
Phy Exam
Physical Exam
Physical Exam:
General: Well-appearing, no clinical signs of dehydration, nontoxic and in no acute distress
HEENT: protecting airway
Head: atraumatic
Neck: appears supple, no midline tenderness
CV: Normal heart rate, regular rhythm
Resp: No accessory muscle use, no increased work of breathing
Abd: No distention
Extremities: No deformities, no swelling. Limited range of motion to the right shoulder. No palpable tenderness. No obvious deformity.
Neuro: alert, no focal neurologic deficit
: deferred
Rectal: deferred
Psych: Normal affect
Skin: Intact
Course
Orders/Labs/Results
Orders:
Orders
03/31/25 04:08
CT Head W/o Iv Contrast Urgent
Comment:
Reason For Exam: fall, unwitnessed
CR Shoulder, Trauma - Right Urgent
Reason For Exam: pain after fall
Vital Signs
Initial and Last Documented VS:
Initial Vital Signs
Temp Pulse Resp BP Pulse Ox
97.4 F 63 16 168/68 98
03/31/25 04:02 03/31/25 04:02 03/31/25 04:02 03/31/25 04:02 03/31/25 04:02
Last Documented Vital Signs
Temp Pulse Resp BP Pulse Ox
97.4 F 71 19 167/72 96
03/31/25 04:02 03/31/25 05:15 03/31/25 05:15 03/31/25 05:00 03/31/25 05:15
MDM/Problems Addressed
MDM/Problems Addressed:
84-year-old male with history of dementia presenting after fall out of bed with right shoulder pain. Vital signs on arrival are significant for mild hypertension
On exam patient is resting comfortably, awake and alert. He is disoriented, however does have some baseline dementia. Denies any prodromal symptoms to the fall. No present concern for syncope or near syncope. No obvious signs of head trauma,
however patient does not recall falling out of the bed, reports that he was in a deep sleep. This reason we will screen with CT brain given patient's age and known history of dementia. No midline cervical neck tenderness. Patient was some limited
range of motion to the right shoulder. Will obtain shoulder x-ray. Otherwise no signs of trauma on secondary exam
05:35 - X-ray without any obvious signs of fracture or dislocation. CT brain without any acute intracranial abnormality. Patient otherwise remained stable. Feel stable for discharge back to his facility. Return precaution precautions discussed
and patient verbalized understanding
*Pulse Oximetry
SaO2: 97
Oxygen Mode of Delivery: Room air
Patient hypoxic: no
*Critical Care Note
Total Time (30-74mins, 75-104mins- exclusive of procedures): Not Applicable
ED Attending Note
-
Portions of this chart may have been created with voice recognition software.� Occasional wrong word or��sound alike� substitutions may have occurred due to the inherent limitations of voice recognition software.
Discharge Plan
Departure
Patient with high blood pressure during this ER visit?: Yes
Condition: Good
Discharge Problem:
Fall, Shoulder pain, right
Instructions: Preventing falls in adults, BLOOD PRESSURE
Prescriptions:
No Action
atorvastatin 80 MG tablet
80 mg PO QPM
donepezil 5 MG tablet
5 mg PO DAILY
icosapent ethyl 1 GM capsule
2 gm PO BID
sertraline 100 mg tablet
100 mg PO DAILY
methenamine hippurate 1 gram tablet
1 g PO BID
metoprolol succinate 25 mg tablet extended release 24 hr
25 mg PO QPM
lisinopril 40 mg tablet
40 mg PO DAILY
memantine 10 mg tablet
10 mg PO BID
cholecalciferol (vitamin D3) [Vitamin D3] 50 mcg (2,000 unit) Tablet
50 mcg PO BID
Activity Restrictions/Additional Instructions:
You were seen in the emergency department for fall
You were found to have a normal CT of your head and normal x-ray of your right shoulder.
Please follow-up closely with your primary care physician.
Return to the emergency department for any worsening of your symptoms, or any development of chest pain, difficulty breathing, abdominal pain with persistent vomiting and inability to tolerate food or liquid by mouth (concern for dehydration),
weakness, headache or confusion, fever greater than 100.4, or any additional symptoms that are concerning to you.
Thank you for choosing [facility].
Interventions
Interventions:
*Risk Screen - Suicide Last Done: 03/31/25 04:15
*General Assessment Last Done: 03/31/25 04:10
*Neglect/Abuse Screening Last Done: 03/31/25 04:15
*ED- Fall Risk Assessment Last Done: 03/31/25 04:10
*ED COVID-19 Vaccine History Last Done: 03/31/25 04:10
*ED Influenza Vaccine History Last Done: 03/31/25 04:10
ED-Musculoskeletal Assessment Last Done: 03/31/25 04:20
ED- Neurological Assessment Last Done: 03/31/25 04:20
ED-Skin Assessment Last Done: 03/31/25 04:20
Discharge Date and Time
Print Language: ALBANIAN
[2025-03-31 04:17] VITALS: BMI 27.4
[2025-03-31 05:00] VITALS: BP 167/72
[2025-03-31 06:00] VITALS: BP 151/70
[2025-03-31 06:41] VITALS: BP 159/61
== END 2025-03-31 06:47 | disposition home or self-care (01) ==
LOC: EMR 03:59
PROVIDERS: EMERGENCY PHYSICIAN Student in an Organized Health Care Education/Training Program; FAMILY PHYSICIAN Family Medicine
DX: M25.511 Pain in right shoulder (principal); W06.XXXA Fall from bed, initial encounter; Y93.84 Activity, sleeping; Y92.092 Bedroom in other non-institutional residence as the place of occurrence of the external cause; G30.9 Alzheimer's disease, unspecified; F02.80 Dementia in other diseases classified elsewhere, unspecified severity, without behavioral disturbance, psychotic disturbance, mood disturbance, and anxiety; E11.9 Type 2 diabetes mellitus without complications; I25.10 Atherosclerotic heart disease of native coronary artery without angina pectoris; I10 Essential (primary) hypertension; E78.00 Pure hypercholesterolemia, unspecified; Z95.5 Presence of coronary angioplasty implant and graft; Z82.49 Family history of ischemic heart disease and other diseases of the circulatory system
CPT/HCPCS: 99284; 70450; 73030

== ENCOUNTER 2025-04-20 04:12 | Emergency (ER) | payer OTHER, SELFPAY ==
[2025-04-20 04:26] VITALS: BMI 28.9
--- NOTE | 2025-04-20 05:33 | ED.GENMED ---
History of Present Illness
General
Chief Complaint: Head Injury
Source: patient, ambulance crew, [facility] and previous hospital records (Previous ED visit for similar unwitnessed fall most recently March 31, 2025.)
Exam Limitations: none
Time Seen by Provider: 04/20/25 04:14
Nursing documentation reviewed up to this point in time: agreed with
History of Present Illness
History of Present Illness:
This is an 84-year-old gentleman with history of dementia, hypertension, diabetes who presents via EMS after unwitnessed fall. He resides at [facility]. Patient states he inadvertently rolled out of bed and struck his forehead
on the floor. He denies loss of consciousness but had difficulty getting up off of the floor. retirement staff found the patient next to his bed. Upon EMS arrival patient noted mild head pain as well as mild neck pain. No weakness or numbness.
No nausea or vomiting. No chest pain nor cough no shortness of breath. He denies abdominal pain nor back pain. He takes no anticoagulants. Evaluated in this ED March 31 after similar unwitnessed fall. Unremarkable CT of the head at that
time. He was also complaining of right shoulder pain at that time, unremarkable x-rays. Shoulder pain has since resolved.
He does note urinary frequency and believes this is related to a new medication he has been placed on.
Since arrival to the ED he has frequently requested assistance to void.
Past History
Past History
ED Past Medical History: CAD, HTN, Hypercholesterolemia, NIDDM (Diet controlled), Other (diverticulosis, PNA, Renal calculus, UTI, Right ankle fracture, ), Other (Alzheimer's Dementia) and Other (kidney stone)
ED Past Surgical History: Cardiac (Stent), Tonsilectomy and Other (Deviated septum)
Social History
Tobacco: Non-smoker
Alcohol: None
Drug: None
Personal:
Living: [facility]
Employment: Employed
Family History
Family History: Hypertension
Phy Exam
Physical Exam
Physical Exam:
TRAUMA EXAM:
VITAL SIGNS: Vital signs reviewed, cooperative
DISTRESS: No active disease
EYES: Pupils reactive, no orbital trauma
NOSE: No deformity or epistaxis
FACE AND SCALP: No scalp or facial trauma, external canals no blood
NECK: Hard cervical collar in place.
BACK: Back nontender, pelvis stable to compression
RESPIRATORY: No distress, breath sounds normal, no tender chest wall
CARDIAC: No murmur, pulses equal and strong
ABDOMEN: Rotund, soft nontender, bowel sounds normal
SKIN: Skin intact no bleeding, color normal
EXTREMITIES: Nontender, full range of motion without difficulty nor pain. +2 pitting edema bilateral lower extremities.
NEUROLOGICAL: Alert, oriented x 2, no motor deficits
PSYCH: Mood affect normal
Course
Orders/Labs/Results
Orders:
Orders
04/20/25 04:15
CT Cervical Spine W/o Iv Contr Urgent
Comment:
Reason For Exam: fall, neck pain
CT Head W/o Iv Contrast Urgent
Comment:
Reason For Exam: fall, head injury
04/20/25 05:20
Bladder Scan- Treatment ONCE
04/20/25 06:26
Urinalysis Reflex To Culture Urgent
Date Specimen was Collected: 04/20/25
Time Specimen was Collected: 06:24
Urine Microscopic Reflex Cult Urgent
Abnormal Lab Results
04/20/25
06:26
Urine Albumin (Reflex) 2+ A
(Neg - Trace)
Vital Signs
Initial and Last Documented VS:
Initial Vital Signs
Temp Pulse Resp Pulse Ox
97.7 F 59 18 99
04/20/25 04:18 04/20/25 04:18 04/20/25 04:18 04/20/25 04:18
Last Documented Vital Signs
Temp Pulse Resp Pulse Ox
97.7 F 59 18 99
04/20/25 04:18 04/20/25 04:18 04/20/25 04:18 04/20/25 05:35
MDM/Problems Addressed
Differential Diagnosis Includes:
Unwitnessed fall reports striking his head.
Complains of mild head pain, neck pain.
Concern for closed head injury, cervical spine fracture.
No focal neurodeficits and remains hemodynamically stable.
MDM/Problems Addressed:
Fall at [facility], head injury.
Will check CT of the head as well as cervical spine.
Due to frequent requests to avoid, concern for potential UTI, BPH, outlet obstruction.
Will check urinalysis as well as bladder scan.
Chronic conditions affecting care: DM, HTN, Arrhythmia, Psychiatric illness (Alzheimer's dementia) and Other (History of kidney stones, UTI)
*Radiology
Radiology exam reviewed: radiology read reviewed
*Pulse Oximetry
SaO2: 99
Oxygen Mode of Delivery: Room air
Patient hypoxic: no
*Critical Care Note
Total Time (30-74mins, 75-104mins- exclusive of procedures): Not Applicable
Data Reviewed
Review of Other/Old Records Reveals: Records (retirement records reviewed) and Radiology Studies (Previous radiology studies including CT of the head March 31. Right shoulder x-ray March 31)
Source: patient, ambulance crew and [facility]
Update Note
Update Note:
06:44
Patient remains bright and alert. Pleasant, in no distress.
Postvoid bladder scan reveals 100 cc in the bladder.
Preliminary urinalysis appears unremarkable. Awaiting microscopic.
CT of the head is unremarkable.
CT of the cervical spine however shows a type II dens fracture that appears nonacute as there is a small callus formation as well as cysts along the fracture line suggesting pseudoarticulation. The fracture however is not healed.
Patient remains neurologically intact.
Case discussed with neurosurgery, Dr. Lomeli who recommends continuing cervical collar and no other intervention required.
Will plan for outpatient follow-up with neurosurgery, Dr. Mcmillan in his office.
I have spoken with patient's daughter, Kira via telephone call. Discussed CAT scan findings and plan of care to continue cervical collar and discharge back to [facility].
She agrees with this plan of care and appreciates the update.
Will arrange for ambulance transfer back to [facility] unit.
ED Attending Note
-
Portions of this chart may have been created with voice recognition software.� Occasional wrong word or��sound alike� substitutions may have occurred due to the inherent limitations of voice recognition software.
Discharge Plan
Departure
Patient Disposition: Halfway/SNF
Date of Disposition: 04/20/25
Time of Disposition: 06:54
Condition: Fair
Discharge Problem:
Subacute C-2/Dens fracture
Instructions: Neck fracture, Cervical collars for adults
Prescriptions:
No Action
atorvastatin 80 MG tablet
80 mg PO QPM
donepezil 5 MG tablet
5 mg PO DAILY
icosapent ethyl 1 GM capsule
2 gm PO BID
sertraline 100 mg tablet
100 mg PO DAILY
methenamine hippurate 1 gram tablet
1 g PO BID
metoprolol succinate 25 mg tablet extended release 24 hr
25 mg PO QPM
lisinopril 40 mg tablet
40 mg PO DAILY
memantine 10 mg tablet
10 mg PO BID
cholecalciferol (vitamin D3) [Vitamin D3] 50 mcg (2,000 unit) Tablet
50 mcg PO BID
Referrals:
Joseph Mejia MD [Family Provider, Family Practice]
Joselito Mcmillan DO [Active, Neurosurgery] - Call in 1-3 days for appt
Activity Restrictions/Additional Instructions:
Cervical collar must remain in place at all times.
Lazarus may require the cervical collar to remain in place over the next 2 to 4 weeks.
He will require follow-up with neurosurgery, Dr. Mcmillan within the next week or two.
Interventions
Interventions:
*Risk Screen - Suicide Last Done: 04/20/25 04:21
*General Assessment Last Done: 04/20/25 04:21
*Neglect/Abuse Screening Last Done: 04/20/25 04:21
*ED- Fall Risk Assessment Last Done: 04/20/25 04:21
*ED COVID-19 Vaccine History Last Done: 04/20/25 04:21
*ED Influenza Vaccine History Last Done: 04/20/25 04:21
ED-Musculoskeletal Assessment Last Done: 04/20/25 04:24
ED- Neurological Assessment Last Done: 04/20/25 04:24
ED-Skin Assessment Last Done: 04/20/25 04:24
Discharge Date and Time
Print Language: WOLOF
[2025-04-20 06:46] LABS: Urine Character Clear (Clear)
[2025-04-20 06:59] LABS: Urine Red Blood Cell 0-2 /HPF (0-2); Urine White Cell 0-2 /HPF (0-5)
== END 2025-04-20 10:10 ==
LOC: EMR 04:12
PROVIDERS: EMERGENCY PHYSICIAN Emergency Medicine; FAMILY PHYSICIAN Family Medicine
DX: S09.90XA Unspecified injury of head, initial encounter (principal); W06.XXXA Fall from bed, initial encounter; Y92.129 Unspecified place in nursing home as the place of occurrence of the external cause; F02.80 Dementia in other diseases classified elsewhere, unspecified severity, without behavioral disturbance, psychotic disturbance, mood disturbance, and anxiety; G30.9 Alzheimer's disease, unspecified; I10 Essential (primary) hypertension; E11.9 Type 2 diabetes mellitus without complications; E78.00 Pure hypercholesterolemia, unspecified; I25.10 Atherosclerotic heart disease of native coronary artery without angina pectoris; Z82.49 Family history of ischemic heart disease and other diseases of the circulatory system; Z87.01 Personal history of pneumonia (recurrent); Z87.440 Personal history of urinary (tract) infections; Z87.442 Personal history of urinary calculi; Z95.5 Presence of coronary angioplasty implant and graft
CPT/HCPCS: 99284; 70450; 72125; 81003; 81015

== ENCOUNTER → 2025-05-15 12:55 | Outpatient (REF) | payer OTHER, SELFPAY | LOC: RAD 12:55 | PROVIDERS: ATTENDING PHYSICIAN Nurse Practitioner Primary Care | DX: M79.89 Other specified soft tissue disorders (principal); M79.604 Pain in right leg | CPT/HCPCS: 73610; 73630; 93970 ==